=== PATIENT | female | born 1995 | race African-American/Black ===

== ENCOUNTER 2023-06-11 16:07 | Emergency (ER) | payer BC, OTHER ==
--- OUTSIDE RECORDS SUMMARY | 2023-06-11 16:12 | XMS REPORT | Continuity of Care Document ---
:1995 Author Organization [facility] t Address [address] [facility] [address] [place] [address] Care Team Providers Name Role Phone JO MONGE Primary Care Physician Unavailable JOSE MACE Attending Clinician Unavailable JOSE MACE Attending Clinician Unavailable Leila Sorensen RN Attending Clinician Unavailable Saleem DOTY, Jo Marquez Attending Clinician JO MONGE Attending Clinician Unavailable Doctor Unassigned, [place] Attending Clinician Unavailable Pea-Rmchp Nurse Vst, Fp Nrpt Pills Class Attending Clinician Unavailable SINDHU LAWRENCE Attending Clinician Unavailable Sindhu Lawrence CNM Attending Clinician Provider, Ang-Rmchp Temp Attending Clinician Unavailable Ester Godfrey Attending Clinician [phone] ESTER WALSH Attending Clinician Unavailable INO Attending Clinician Unavailable Paula Hwang Attending Clinician PAULA HARRY Attending Clinician Unavailable INO Admitting Clinician Unavailable Payers Payer Name Policy Type Policy Number Effective Date Expiration Date Mary newell [facility] [id number] 2022 00:00:00 [place] [id number] 2022 00:00:00 [place] ([place] Problems Condition Condition Condition Status Onset Resolution Last Treating Co mments Source Name Details Category Date Date Treatment Clinician Date Pap smear Pap smear Disease Active Overview: Univers of cervix of cervix 04-12 Formattin i ty of with with 00:00: g of this [place] ASCUS, ASCUS, 00 note Medical cannot cannot might be Branch exclude exclude different HGSIL HGSIL from the original. ASCUS with HPV - noted on repeat pap (03/2023) . No POPPY noted on colposcop y bx. Needs repeat co-testin g in 12 months (03/2024) . BV BV Disease Active Univers (bacterial (bacterial -05 it y of vaginosis) vaginosis[place] [facility] Breakthrou Breakthrou Disease Active 2021-08 U nivers gh gh 1-11 ity of bleeding bleeding 00:00: [place] on depo on depo 00 Medical provera provera Branch Encounter Encounter Disease Active Uni vers for for 8- ity of initial initial 00:00: [place] prescripti prescripti 00 Me dical on of on of Branch injectable injectable contracept contracept armand armand Screening Screening Disease Active Uni vers examinatio examinatio 03-05 it y of n for STD n for STD 00:[place] (sexually (sexually 00 Medi siri transmitte transmitte Br anch d disease) d disease) Depo Depo Disease Active Univers contracept contracept 03-05 it y of ion ion 00:00: [place] 00 Medical Branch Sickle Sickle Disease Active Univers cell trait cell trait 12-20 it y of 00:00: [place] 00 Medical Branch Well woman Well woman Disease Active Overview : Univers exam exam 12-20 Formattin ity of 00:00: g of this 00 note Medical might be Branch different from the original. ICD10 Diagnosis Term Insulation Applicator Utility Allergies, Adverse Reactions, Alerts Allergy Allergy Status Severity Reaction(s) Onset Inactive Treating Comm ents Source Name Type Date Date Clinician Penicill Propensi Active Anaphylaxis U nivers ins ty to 12-20 ity of adverse 00:00: [place] reaction 00 Medical s Branch PENICILL Drug Active Anaphylaxis 0 Uni vers INS Class 5-07 ity of 00:00: [place] 00 Medical Branch Social History Social Habit Start Date Stop Date Quantity Comments Source Gender identity [facility] Medical Drain Alcohol intake 2023-05-06 2023-05-06 0 /d [facility] 00:00:00 00:00:00 Medical Branch Exposure to 2022-12-19 2022-12-29 Not sure [facility] SARS-CoV-2 (event) 00:00:00 15:28:00 Medica l Branch History of Social 2022-12-29 2022-12-29 [facility] function 00:00:00 00:00:00 Medical Branch Sex Assigned At [birth year] [facility] 00:00:00 00:00:00 Medical Branch Smoking Status Start Date Stop Date Source Never smoked tobacco [facility] Medications Ordered Filled Start Stop Current Ordering Indication Dosage Frequency Signature Comments Components Source Medication Medication Date Date Medication? Clinician (SIG) Name Name medroxyPROG 2022-0 2023- Yes [id number] 150mg Univers ESTERone -16 05-24 ity of (DEPO-PROVE 17:00: 16:59 [place] RA) 00 :00 Medical injection Branch 150 mg medroxyPROG 2022-0 2023- Yes [id number] 150mg 150 mg, Univers ESTERone -31 05- Intramuscu ity of (DEPO-PROVE 17:00: 16:59 lar, [place] RA) 00 :00 [id number], Medical injection 5 doses, Branch 150 mg First dose on Wed03/31/23 at 1200, Last dose on Wed03/01/24 at 1200, Routine medroxyPROG 2022-0 2023- Yes [id number] 150mg Univers ESTERone -16 - ity of (DEPO-PROVE 17:00: 16:59 [place] RA) 00 :00 Medical injection Branch 150 mg medroxyPROG 2023-0 2023- Yes [id number] 150mg 150 mg, Univers ESTERone -16 10-09 Intramuscu ity of (DEPO-PROVE 17:00: 16:59 lar, [place] RA) 00 :00 [id number], Medical injection 5 doses, Branch 150 mg First dose on Wed03/31/23 at 1200, Last dose on Wed03/01/24 at 1200, Routine medroxyPROG 2023-0 2023- Yes [id number] 150mg Univers ESTERone 8-16 10-09 ity of (DEPO-PROVE 17:00: 16:59 [place] RA) 00 :00 Medical injection Branch 150 mg medroxyPROG 2023-0 4- Yes [id number] 150mg Univers ESTERone 8-16 10-09 ity of (DEPO-PROVE 17:00: 16:59 [place] RA) 00 :00 Medical injection Branch 150 mg medroxyPROG 2023-0 4- Yes [id number] 150mg Univers ESTERone 8-16 10-09 ity of (DEPO-PROVE 17:00: 16:59 [place] RA) 00 :00 Medical injection Branch 150 mg medroxyPROG 2023-0 4- Yes [id number] 150mg Univers ESTERone 8-16 10-09 ity of (DEPO-PROVE 17:00: 16:59 [place] RA) 00 :00 Medical injection Branch 150 mg medroxyPROG 2023-0 4- Yes [id number] 150mg Univers ESTERone 8-16 10-09 ity of (DEPO-PROVE 17:00: 16:59 [place] RA) 00 :00 Medical injection Branch 150 mg medroxyPROG 2023-0 4- Yes [id number] 150mg Univers ESTERone 8-16 10-09 ity of (DEPO-PROVE 17:00: 16:59 [place] RA) 00 :00 Medical injection Branch 150 mg medroxyPROG 2023-0 4- Yes [id number] 150mg Univers ESTERone 8-16 10-09 ity of (DEPO-PROVE 17:00: 16:59 [place] RA) 00 :00 Medical injection Branch 150 mg medroxyPROG 2023-0 4- Yes [id number] 150mg Univers ESTERone 8-16 10-09 ity of (DEPO-PROVE 17:00: 16:59 [place] RA) 00 :00 Medical injection Branch 150 mg metroNIDAZO 2023-0 2023- No [id number] 500mg Take 1 Univers LE 500 mg 08-20 tablet by ity of tablet 00:00: 05:59 mouth in [place] 00 :00 the Medical morning Branch and 1 tablet in the evening. Do all this for 7 days. medroxyPROG 2022-0 3- No [id number] 150mg Univers ESTERone 04-03 ity of (DEPO-PROVE 14:00: 13:59 [place] RA) 00 :00 Medical injection Branch 150 mg medroxyPROG 2022-0 3- No [id number] 150mg Univers ESTERone 04-03 ity of (DEPO-PROVE 14:00: 13:59 [place] RA) 00 :00 Medical injection Branch 150 mg medroxyPROG 2022-0 3- No [id number] 150mg 150 mg, Univers ESTERone 04-03 Intramuscu ity of (DEPO-PROVE 14:00: 13:59 [place], [place] RA) 00 :00 [id number], Medical injection 4 doses, Branch 150 mg First dose on Wed04/03/22 at 0900, Last dose on Wed12/11/22 at 0900, Routine medroxyPROG 2022-0 2022- No [id number] 150mg Univers ESTERone 04-03 ity of (DEPO-PROVE 14:00: 13:59 [place] RA) 00 :00 Medical injection Branch 150 mg medroxyPROG 2022-0 2022- No [id number] 150mg 150 mg, Univers ESTERone 04-03 Intramuscu ity of (DEPO-PROVE 14:00: 13:59 [place], [place] RA) 00 :00 [id number], Medical injection 4 doses, Branch 150 mg First dose on Wed04/03/22 at 0900, Last dose on Wed12/11/22 at 0900, Routine medroxyPROG 2022-0 3- No [id number] 150mg Univers ESTERone 04-03 ity of (DEPO-PROVE 14:00: 13:59 [place] RA) 00 :00 Medical injection Branch 150 mg medroxyPROG 2022-0 3- No [id number] 150mg Univers ESTERone 04-03 ity of (DEPO-PROVE 14:00: 13:59 [place] RA) 00 :00 Medical injection Branch 150 mg medroxyPROG 2022-0 3- No [id number] 150mg Univers ESTERone 04-03 ity of (DEPO-PROVE 14:00: 13:59 [place] RA) 00 :00 Medical injection Branch 150 mg medroxyPROG 2-0 3- No [id number] 150mg Univers ESTERone 04-03 ity of (DEPO-PROVE 14:00: 13:59 [place] RA) 00 :00 Medical injection Branch 150 mg medroxyPROG 2-0 3- No [id number] 150mg 150 mg, Univers ESTERone 04-03 Intramuscu ity of (DEPO-PROVE 14:00: 13:59 [facility], [place] RA) 00 :00 [id number], Medical injection 4 doses, Branch 150 mg First dose on Wed04/03/22 at 0900, Last dose on Wed12/11/22 at 0900, Routine medroxyPROG 2-0 2022- No [id number] 150mg 150 mg, Univers ESTERone 04-03-16 Intramuscu ity of (DEPO-PROVE 14:00: 20:56 [facility]) 00 :00 [id number], Medical injection 4 doses, Branch 150 mg First dose on Wed04/03/22 at 0900, Last dose on Wed12/11/22 at 0900, Routine Immunizations Ordered Filled Date Status Comments Source Immunization Name Immunization Name HPV9 2016-06-04 Completed University of 00:00:00 [facility] HPV9 2016-06-04 Completed University of 00:00:00 [facility] HPV9 2016-06-04 Completed University of 00:00:00 [facility] HPV9 2016-06-04 Completed University of 00:00:00 [facility] HPV9 2016-06-04 Completed University of 00:00:00 [facility] HPV9 2016-06-04 Completed University of 00:00:00 [facility] HPV9 2016-06-04 Completed University of 00:00:00 [facility] HPV9 2016-06-04 Completed University of 00:00:00 [facility] HPV9 2016-06-04 Completed University of 00:00:00 [facility] HPV9 2016-06-04 Completed University of 00:00:00 [facility] HPV9 2016-06-04 Completed University of 00:00:00 [facility] HPV9 2016-03-05 Completed University of 00:00:00 [facility] HPV9 2016-03-05 Completed University of 00:00:00 [place] [facility] HPV9 2016-03-05 Completed University of 00:00:00 [place] [facility] HPV9 2016-03-05 Completed University of 00:00:00 [place] [facility] HPV9 2016-03-05 Completed University of 00:00:00 [place] [facility] HPV9 2016-03-05 Completed University of 00:00:00 [place] [facility] HPV9 2016-03-05 Completed University of 00:00:00 [place] [facility] HPV9 2016-03-05 Completed University of 00:00:00 [place] [facility] HPV9 2016-03-05 Completed University of 00:00:00 [place] [facility] HPV9 2016-03-05 Completed University of 00:00:00 [place] [facility] HPV9 2016-03-05 Completed University of 00:00:00 [facility] Branch TDAP 2013-03-22 Completed University of 00:00:00 [facility] Branch TDAP 2013-03-22 Completed University of 00:00:00 [facility] Branch TDAP 2013-03-22 Completed University of 00:00:00 [facility] Branch TDAP 2013-03-22 Completed University of 00:00:00 [facility] Branch TDAP 2013-03-22 Completed University of 00:00:00 [facility] Branch TDAP 2013-03-22 Completed University of 00:00:00 [place] [facility] TDAP 2013-03-22 Completed University of 00:00:00 [place] [facility] TDAP 2013-03-22 Completed University of 00:00:00 [facility] Branch TDAP 2013-03-22 Completed University of 00:00:00 [facility] Branch TDAP 2013-03-22 Completed University of 00:00:00 [place] [facility] TDAP 2013-03-22 Completed University of 00:00:00 [place] [facility] TDAP Unknown Completed [facility] HPV9 Unknown Completed [facility] HPV9 Unknown Completed [facility] TDAP Unknown Completed [facility] HPV9 Unknown Completed [facility] HPV9 Unknown Completed [facility] TDAP Unknown Completed [facility] HPV9 Unknown Completed [facility] HPV9 Unknown Completed [facility] TDAP Unknown Completed [facility] HPV9 Unknown Completed [facility] HPV9 Unknown Completed [facility] TDAP Unknown Completed [facility] HPV9 Unknown Completed [facility] HPV9 Unknown Completed [facility] TDAP Unknown Completed [facility] HPV9 Unknown Completed [facility] HPV9 Unknown Completed [facility] TDAP Unknown Completed [facility] HPV9 Unknown Completed [facility] HPV9 Unknown Completed [facility] TDAP Unknown Completed [facility] HPV9 Unknown Completed [facility] HPV9 Unknown Completed [facility] TDAP Unknown Completed [facility] HPV9 Unknown Completed [facility] HPV9 Unknown Completed [facility] TDAP Unknown Completed [facility] HPV9 Unknown Completed [facility] HPV9 Unknown Completed [facility] Vital Signs Vital Name Observation Time Observation Value Comments Source Systolic blood 2023-05-06 14:47:00 110 mm[Hg] Univer sity of pressure [facility] Diastolic blood 2023-05-06 14:47:00 70 mm[Hg] Unive rsity of pressure [facility] Heart rate 2023-05-06 14:47:00 94 /min Universi ty [facility] Body temperature 2023-05-06 14:47:00 36.72 [facility] Res[facility] rate 2023-05-06 14:47:00 19 /min [facility] Body height 2023-05-06 14:47:00 162.6 cm [facility] ty [facility] Body weight 2023-05-06 14:47:00 57.834 kg [facility] BMI 2023-05-06 14:47:00 21.89 kg/m2 [facility] Systolic blood 2023-03-31 16:10:00 115 mm[Hg] Univer sity of pressure [facility] Diastolic blood 2023-03-31 16:10:00 68 mm[Hg] Unive rsity of pressure [facility] Heart rate 2023-03-31 16:10:00 91 /min [facility] ty [facility] Body temperature 2023-03-31 16:10:00 36.61 [facility] Respiratory rate 2023-03-31 16:10:00 17 /min [facility] Body height 2023-03-31 16:10:00 162.6 cm Universi ty [facility] [place] [facility] Body weight 2023-03-31 16:10:00 58.627 kg Universi ty of [place] [facility] BMI 2023-03-31 16:10:00 22.19 kg/m2 Universi ty of [place] [facility] Systolic blood 2022-12-29 20:28:00 123 mm[Hg] Univer sity of pressure [place] [facility] Diastolic blood 2022-12-29 20:28:00 81 mm[Hg] Unive rsity of pressure [place] [facility] Heart rate 2022-12-29 20:28:00 90 /min Universi ty of [place] [facility] Body temperature 2022-12-29 20:28:00 36.83 Alize Univ ersity of [place] [facility] Respiratory rate 2022-12-29 20:28:00 17 /min Univ ersity of [place] [facility] Body height 2022-12-29 20:28:00 162.6 cm Universi ty of [place] [facility] Body weight 2022-12-29 20:28:00 55.877 kg Universi ty of [place] [facility] BMI 2022-12-29 20:28:00 21.15 kg/m2 Universi ty of [place] [facility] Systolic blood 2022-09-28 22:07:00 114 mm[Hg] Univer sity of pressure [place] [facility] Diastolic blood 2022-09-28 22:07:00 77 mm[Hg] Unive rsity of pressure [place] [facility] Heart rate 2022-09-28 22:07:00 105 /min Universi ty of [place] [facility] Body temperature 2022-09-28 22:07:00 36.22 Alize Univ ersity of [place] [facility] Respiratory rate 2022-09-28 22:07:00 17 /min Univ ersity of [place] [facility] Body height 2022-09-28 22:07:00 162.6 cm Universi ty of [place] [facility] Body weight 2022-09-28 22:07:00 55.43 kg Universi ty of [place] [facility] BMI 2022-09-28 22:07:00 20.98 kg/m2 Universi ty of [place] [facility] Systolic blood 2022-08-18 14:49:00 120 mm[Hg] Univer sity of pressure [place] [facility] Diastolic blood 2022-08-18 14:49:00 73 mm[Hg] Unive rsity of pressure [place] [facility] Heart rate 2022-08-18 14:49:00 81 /min Universi ty of [facility] Body temperature 2022-08-18 14:49:00 36.67 Alize Univ ersity of [place] [facility] Respiratory rate 2022-08-18 14:49:00 18 /min Univ ersity of [facility] Body height 2022-08-18 14:49:00 162.6 cm Universi ty of [place] [facility] Body weight 2022-08-18 14:49:00 57.607 kg Universi ty of [place] [facility] BMI 2022-08-18 14:49:00 21.80 kg/m2 Universi ty of [place] [facility] Systolic blood 2022-06-26 15:14:00 115 mm[Hg] Univer sity of [facility] Diastolic blood 2022-06-26 15:14:00 78 mm[Hg] Unive rsity of [facility] Heart rate 2022-06-26 15:14:00 99 /min Universi ty of [place] [facility] Body temperature 2022-06-26 15:14:00 36.83 Alize [facility] Respiratory rate 2022-06-26 15:14:00 18 /min Univ ersity [facility] Body height 2022-06-26 15:14:00 162.6 cm Universi ty of [facility] Body weight 2022-06-26 15:14:00 55.055 kg Universi ty of [facility] BMI 2022-06-26 15:14:00 20.83 kg/m2 Universi ty of [facility] Procedures Procedure Date / Time Performed Performing Clinician Addy elliott POCT TEST 2023-05-06 14:49:00 Jo Monge [facility] DISCLOSURE AND CONSENT 2023-05-06 05:01:00 Doctor Unassigned, No [facility] MEDICAL & SURGICAL Name Medical [facility] h PROCEDURES - COLPOY ASSIGNMENT OF BENEFITS 2023-03-31 15:46:57 Doctor Unassigned, No [facility] POCT TEST 2022-09-28 22:11:00 [facility] CBC WITH DIFF 2022-06-26 15:49:00 Ester Walsh [facility] GC & CHLAMYDIA 2022-06-26 15:49:00 Ester Walsh [facility] Encounters Start End Encounter Admission Attending Care Care Encounter Source Date/Time Date/Time Type Type Clinicians Facility Department ID 2023-06-03 2023-06-03 Outpatient R [facility] [id number] Univers 09:00:00 09:00:00 ity [facility] 2023-05-20 2023-05-20 Nurse Tiara BUITRAGO [id number] Univers 00:00:00 00:00:00 Triage dLeila 350.1.13.10 ity of [facility] 4.2.7.2.686 [place] [id number] [facility] [address] 2023-05-12 2023-05-12 [facility]phone [facility] [id number] Univers 00:00:00 00:00:00 Jo Marquez PIT OPERATOR 350.1.13.10 ity of [place] [id number] [place] as MATERNAL [id number] Med ical & CHILD [address] [place] [address] 2023-05-06 2023-05-06 [facility] [id number] Univers 09:45:00 10:46:54 JO pagan f [facility] 2023-05-06 2023-05-06 [facility] [id number] Univers 09:45:00 10:46:54 Visit Jo Marquez PIT OPERATOR 350.1.13.10 ity of [address]686 [place] MATERNAL [id number] Med ical & CHILD [address] [place] [address] 2023-05-06 2023-05-06 Orders Doctor BUITRAGO 1.2.840.114 [id number] Univers 00:00:00 00:00:00 Only Unassigned, JESSICA 350.1.13.10 ity of [place] [facility] 4.2.7.2.686 [place] [id number] [facility] [address] 2023-04-08 2023-04-08 Patient [facility] [id number] Univers 00:00:00 00:00:00 Secure Msg Jo Marquez PIT OPERATOR 350.1.13.10 ity of [facility] 4.2.7.2.686 [place] MATERNAL [id number] [facility] & [address] 2023-03-31 2023-03-31 [facility] [id number] Univers 11:00:00 12:07:28 JO naidu [facility] 2023-03-31 2023-03-31 Office [facility] [id number] Univers 11:00:00 12:07:28 Visit Jo Marquez PIT OPERATOR 350.1.13.10 ity of [facility] 4.2.7.2.686 [place] MATERNAL [id number] [address] 2023-03-31 2023-03-31 Orders Doctor IFTIKHAR 1.2.840.114 [id number] Univers 00:00:00 00:00:00 Only Unassigned, JESSICA 350.1.13.10 ity of [place] [facility] 4.2.7.2.686 [place] [id number] [address] 2022-12-29 2022-12-29 [facility] [id number] Univers 15:30:00 15:57:40 JO naidu [facility] 2022-12-29 2022-12-29 Nurse Robyn-Rmchp Nurse Vst, Fp Nrpt Pills Class [facility] 1.2.840.114 [id number] Univers 15:30:00 15:57:40 Visit Jo Monge PIT OPERATOR 350.1.13.10 ity of [facility] 4.2.7.2.686 [place] MATERNAL [id number] [address] 2022-09-28 2022-09-28 Nurse Robyn-Rmchp Nurse Vst, Fp Nrpt Pills Class [facility] 1.2.840.114 [id number] Univers 15:45:00 16:41:09 Visit Jo Monge PIT OPERATOR 350.1.13.10 ity of REGIONAL 4.2.7.2.686 [place] MATERNAL [id number] Med ical & CHILD 125 [facility] 2022-09-28 2022-09-28 Outpatient R SALEEM [facility] [id number] Univers 15:45:00 15:45:00 JO gamez o f [facility] 2022-09-25 2022-09-25 [facility] [id number] Univers 08:00:00 08:00:00 SINDHU gamez [facility] 2022-08-21 2022-08-21 Patient Doctor [facility] 1.2.840.114 [id number] Univers 00:00:00 00:00:00 Secure Msg Unassigned, PIT OPERATOR 350.1.13.10 ity of [place] REGIONAL 4.2.7.2.686 [place] MATERNAL [id number] [facility] & CHILD [address] [place] [address] 2022-08-20 2022-08-20 Case [facility] 1.2.840.114 [id number] Univers 00:00:00 00:00:00 Management Sindhu Marquez PIT OPERATOR 350.1.13.10 ity of [facility] 4.2.7.2.686 [place] MATERNAL [id number] [facility] & CHILD [address] [place] [address] 2022-08-18 2022-08-18 Outpatient Luz [facility] [id number] Univers 08:00:00 09:41:28 SINDHU gamez [facility] 2022-08-18 2022-08-18 Office Provider, [facility] 1 .2.840.114 [id number] Univers 08:00:00 09:41:28 Visit Sindhu Lawrence PIT OPERATOR 350.1.13.1 0 ity of [facility] 4.2.7.2.686 [place] MATERNAL [id number] [facility] & CHILD [address] [place] [address] 2022-06-26 2022-06-26 Office [facility] [id number] Univers 09:00:00 09:49:04 Visit Ester Schwartz PIT OPERATOR 350.1.13.10 ity of REGIONAL 4.2.7.2.686 [place] MATERNAL [id number] [facility] ical & CHILD [address] [place] [address] 2022-06-26 2022-06-26 Outpatient Luz Marina WALSH [facility] [id number] Univers 09:00:00 09:49:04 ESTER ity o f [facility] 2022-04-08 2022-04-08 Outpatient INO LORA [id number] 00:00:00 00:00:00 08 Jaison Apollo mary 2022-04-08 2022-04-08 [facility] [id number] Univers 00:00:00 00:00:00 Paula Raza PIT OPERATOR 350.1.13.10 ity of [facility] 4.2.7.2.686 [place] MATERNAL [id number] [facility] & CHILD [address] [place] [address] 2022-04-07 2022-04-07 Patient Doctor IFTIKHAR 1.2.840.114 [id number] Univers 00:00:00 00:00:00 Secure Msg Unassigned, JESSICA 350.1.13.10 ity of [place] [facility] 4.2.7.2.686 [place] [id number] [address] 2022-04-06 2022-04-06 Refill [facility] 1.2.840.114 [id number] Univers 00:00:00 00:00:00 Paula R PIT OPERATOR 350.1.13.10 ity of [facility] 4.2.7.2.686 [place] MATERNAL [id number] [facility] & CHILD [address] [place] [address] 2022-04-06 2022-04-06 [id number] Univers 00:00:00 00:00:00 Stephana R PIT OPERATOR [id number] ity of [facility] [id number] [place] as MATERNAL [id number] [facility] ical & CHILD [address] [place] [address] 2022-04-03 2022-04-03 Outpatient Luz Marina HARRY [facility] [id number] Univers 08:30:00 08:56:06 ROSTANIYANDA ity o [facility] 2022-04-03 2022-04-03 [facility] [id number] Univers 08:30:00 08:56:06 Visit Rosnda R PIT OPERATOR [id number] ity of [facility] 4.2.7.2.686 [place] as MATERNAL [id number] [facility] & [address] 2022-04-03 2022-04-03 [facility] [id number] Univers 08:30:00 08:30:00 ROSTANIYANDA ity o [facility] 2022-04-03 2022-04-03 [facility] [id number] Univers 08:30:00 08:30:00 ROSTANIYANDA ity o [facility] 2022-03-27 2022-03-27 Telephone [facility] [id number] Univers 00:00:00 00:00:00 Rosnda R PIT OPERATOR [id number] ity of REGIONAL 4.2.7.2.686 [place] as MATERNAL [id number] [facility] & [address] 2022-03-20 2022-03-20 Telephone [facility] [id number] Univers 00:00:00 00:00:00 Roshunda R PIT OPERATOR 350.1.13.10 ity of REGIONAL 4.2.7.2.686 [place] as MATERNAL [id number] [facility] ical & CHILD [address] [place] [address] 2022-03-18 2022-03-18 Outpatient Luz Marina HARRY [facility] [id number] Univers 15:30:00 16:10:54 ROSHUNDA ity o [facility] 2022-03-18 2022-03-18 Outpatient Luz Marina HARRY [facility] [id number] Univers 15:30:00 16:10:54 ROSHUNDA ity o [facility] 2022-03-18 2022-03-18 Outpatient Luz Marina HARRY [facility] [id number] Univers 15:30:00 16:10:54 PAULA gamez o [facility] 2022-03-18 2022-03-18 Outpatient Luz Marina HARRY [facility] [id number] Univers 15:30:00 16:10:54 PAULA gamez o [facility] 2022-03-18 2022-03-18 Outpatient Luz Marina HARRY [facility] [id number] Univers 15:30:00 16:10:54 CLAUSJULIANA pagan [facility] 2022-03-18 2022-03-18 Office [facility] [id number] [facility] 15:30:00 16:10:54 Visit Stephanrodriguez Raza PIT OPERATOR 350.1.13.10 [facility] 4.2.7.2.686 [place] as MATERNAL [id number] Med ical & CHILD [address] [place] [address] 2020-12-09 2020-12-09 Outpatient [facility] 00:00:00 00:00:00 [facility] Results Test Description Test Time Test Comments Results Result Comments Source POCT TEST 2023-05-06 14:49:00 Test Item Value Reference Range Interpretation Comme nts POCT PREG (test code = 1605) Negative On board controls acceptable with C Line (test code = 3574) Yes POCT PREG LOT # (test code = 3575) POCT PREG TEST DATE (test code = 3576[id number] 14:49:00 Test Item Value Reference Range Interpretation Comments POCT PREG (test code = 1605) Negative On board controls acceptable with C Yes Line (test code = 3574) POCT PREG LOT # (test code = 3575) POCT PREG TEST DATE (test code = 3576) [id number] 22:11:00 Test Item Value Reference Range Interpretation Comments POCT PREG (test code = 1605) Negative On board controls acceptable with C Yes Line (test code = 3574) POCT PREG LOT # (test code = 3575) POCT PREG TEST DATE (test code = 3576) [facility] WITH [id number] 09:20:25 Test Item Value Reference Range Interpretation Comments WBC (test code = See_Comment L [Automated 6690-2) message] The sy stem which generated this result transmitted reference range : 4.30 - 11.10 10*3/?L. The reference range was not used to interpret this result as normal/abnormal . RBC (test code = See_Comment [Automated 789-8) message] The sy stem which generated this result transmitted reference range : 3.93 - 5.25 10*6/?L. The reference range was not used to interpret this result as normal/abnormal . HGB (test code = 12.8 g/dL 11.6-15.0 718-7) HCT (test code = 38.9 % 35.7-45.2 4544-3) MCV (test code = 79.7 fL 80.6-95.5 L 787-2) MCH (test code = 26.2 pg 25.9-32.8 785-6) MCHC (test code = 32.9 g/dL 31.6-35.1 786-4) RDW-SD (test code = 40.9 fL 39.0-49.9 10021-1) RDW-CV (test code = 14.1 % 12.0-15.5 788-0) PLT (test code = See_Comment [Automated 777-3) message] The sy stem which generated this result transmitted reference range : 166 - 358 10*3/ ?L. The reference r angus was not used to interpret this result as normal/abnormal . MPV (test code = 9.1 fL 9.5-12.9 L 02641-4) NRBC/100 WBC (test See_Comment [Automat ed code = 2580818909) message] The system which generated this result transmitted reference range : 0.0 - 10.0 /100 WBCs. The refer ence range was not u sed to interpret th is result as normal/abnormal . NRBC x10^3 (test code See_Comment [Auto mated = 8220546520) message] The s ystem which generated this result transmitted reference range : 10*3/?L. The reference range was not used to interpret this result as normal/abnormal . GRAN MAT (NEUT) % 39.6 % (test code = 770-8) IMM GRAN % (test code 0.30 % = 7855435019) LYMPH % (test code = 45.2 % 736-9) MONO % (test code = 9.6 % 5905-5) EOS % (test code = 3.8 % 713-8) BASO % (test code = 1.5 % 706-2) GRAN MAT x10^3(ANC) 1.36 10*3/uL 1.88-7.09 L (test code = 4484991077) IMM GRAN x10^3 (test 0.00-0.06 code = 2206052651) LYMPH x10^3 (test code 1.55 10*3/uL 1.32-3.29 = 731-0) MONO x10^3 (test code 0.33 10*3/uL 0.33-0.92 = 742-7) EOS x10^3 (test code = 0.13 10*3/uL 0.03-0.39 711-2) BASO x10^3 (test code 0.05 10*3/uL 0.01-0.07 = 704-7) Lab Interpretation Abnormal (test code = 58238-1) [facility] WITH [id number] 09:20:25 Test Item Value Reference Range Interpretation Comments WBC (test code = See_Comment L [Automated 4990-2) message] The sy stem which generated this result transmitted reference range : 4.30 - 11.10 10*3/?L. The reference range was not used to interpret this result as normal/abnormal . RBC (test code = See_Comment [Automated 599-8) message] The sy stem which generated this result transmitted reference range : 3.93 - 5.25 10*6/?L. The reference range was not used to interpret this result as normal/abnormal . HGB (test code = 12.8 g/dL 11.6-15.0 718-7) HCT (test code = 38.9 % 35.7-45.2 4544-3) MCV (test code = 79.7 fL 80.6-95.5 L 787-2) MCH (test code = 26.2 pg 25.9-32.8 785-6) MCHC (test code = 32.9 g/dL 31.6-35.1 786-4) RDW-SD (test code = 40.9 fL 39.0-49.9 50526-7) RDW-CV (test code = 14.1 % 12.0-15.5 788-0) PLT (test code = See_Comment [Automated 777-3) message] The sy stem which generated this result transmitted reference range : 166 - 358 10*3/ ?L. The reference r angus was not used to interpret this result as normal/abnormal . MPV (test code = 9.1 fL 9.5-12.9 L 27418-9) NRBC/100 WBC (test See_Comment [Automat ed code = 4033354896) message] The system which generated this result transmitted reference range : 0.0 - 10.0 /100 WBCs. The refer ence range was not u sed to interpret th is result as normal/abnormal . NRBC x10^3 (test code See_Comment [Auto mated = 3611333830) message] The s ystem which generated this result transmitted reference range : 10*3/?L. The reference range was not used to interpret this result as normal/abnormal . GRAN MAT (NEUT) % 39.6 % (test code = 770-8) IMM GRAN % (test code 0.30 % = 2166134520) LYMPH % (test code = 45.2 % 736-9) MONO % (test code = 9.6 % 5905-5) EOS % (test code = 3.8 % 713-8) BASO % (test code = 1.5 % 706-2) GRAN MAT x10^3(ANC) 1.36 10*3/uL 1.88-7.09 L (test code = 0763598332) IMM GRAN x10^3 (test 0.00-0.06 code = 3612997625) LYMPH x10^3 (test code 1.55 10*3/uL 1.32-3.29 = 731-0) MONO x10^3 (test code 0.33 10*3/uL 0.33-0.92 = 742-7) EOS x10^3 (test code = 0.13 10*3/uL 0.03-0.39 711-2) BASO x10^3 (test code 0.05 10*3/uL 0.01-0.07 = 704-7) Lab Interpretation Abnormal (test code = 67670-5) [facility]
[2023-06-11 16:55] LABS: Specific Gravity 1.015 (1.005-1.030)
[2023-06-11 16:56] LABS: Specific Gravity 1.015 (1.005-1.030); Urine Bacteria <20 /HPF (<20); Urine Bilirubin NEGATIVE (Negative); Urine Blood Trace (Negative); Urine Clarity Turbid (Clear); Urine Color Light-Yellow (Yellow); Urine Glucose NEGATIVE (Negative); Urine Mucus Slight /HPF (None Seen); Urine Protein NEGATIVE (Negative); Urine Urobilinogen Normal (Normal)
[2023-06-11 17:02] LABS: Hematocrit 38.7 % (36.0-45.0); Lymphocytes % 26.7 % (15.3-44.8); MPV 6.2 fL (7.6-11.3); Platelets 330 thou/uL (152-406); RBC Red Blood Cell Count 4.66 M/uL (3.86-4.86)
[2023-06-11 17:03] LABS: Absolute Lymphocytes (CBC) 1.7 K/uL (0.7-4.9)
[2023-06-11] MEDS ORDERED: NA CHLORIDE 0.9% 2,000 ML ONE (17:13)
[2023-06-11] MEDS ORDERED: ACETAMINOPHEN 325 MG TABLET ONE (17:13)
[2023-06-11 17:28] LABS: Albumin 3.9 g/dL (3.4-5.0); Bilirubin Total 0.4 mg/dL (0.2-1.0); Potassium 3.7 mEq/L (3.5-5.1); Protein, Total 8.1 g/dL (6.4-8.2)
[2023-06-11] MEDS ORDERED: KETOROLAC 30 MG/ML INJ ONE (18:03)
--- NOTE | 2023-06-11 18:07 | RAD REPORT ---
EXAM DESCRIPTION: CT - Abdomen Pelvis W Contrast - 06/11/2023 5:51 pm CLINICAL HISTORY: Abdominal pain/left lower quadrant COMPARISON: none. TECHNIQUE: Computed axial tomography of the abdomen pelvis was obtained. 100 cc [id number] was admin istered intravenously. Oral contrast was not requested which limits evaluation of bowel and appendix All CT scans are performed using dose optimization technique as appropriate and may include automated exposure control or mA/KV adjustment according to patient size. FINDINGS: The liver, spleen, pancreas, adrenal and kidneys appear unremarkable. There is no evidence of diverticulitis. The ovaries are normal size containing many follicles. No significant free fluid IMPRESSION: Ovaries appear to contain many follicles. This is a nonspecific finding but can be seen with polycystic ovarian syndrome syndrome
--- NOTE | 2023-06-11 19:16 | ER ---
Nurse's Notes [facility] Name: Kurtis López Age: 27 yrs Sex: Female : 1995 Arrival Date: 06/11/2023 Time: 16:07 Bed 5 Private MD: Diagnosis: Lower abdominal pain, unspecified;SARS-associated coronavirus as the cause of diseases classified elsewhere Presentation: 06/11 16:23 Chief complaint: Patient states: LLQ pain X 2 DAYS. Coronavirus screen: At this time, ld1 the client does not indicate any symptoms associated with coronavirus-19. Ebola Screen: No symptoms or risks identified at this time. Onset of symptoms was June 11, 2023. 16:23 Method Of Arrival: Ambulatory ld1 16:23 Acuity: KYA 3 ld1 19:31 Initial Sepsis Screen: Does the patient meet any 2 criteria? HR > 90 bpm. No. Patient's me1 initial sepsis screen is negative. Does the patient have a suspected source of infection? Yes: Acute abdominal pain. Risk Assessment: Do you want to hurt yourself or someone else? Patient reports no desire to harm self or others. Triage Assessment: 16:23 General: Appears in no apparent distress. comfortable, Behavior is calm, cooperative, ld1 appropriate for age. Pain: Complains of pain in left lower quadrant Pain does not radiate. Pain currently is 10 out of 10 on a pain scale. Quality of pain is described as throbbing, Pain began 2-3 days ago. Is continuous. EENT: No signs and/or symptoms were reported regarding the EENT system. Neuro: Level of Consciousness is awake, alert, obeys commands, Oriented to person, place, time, situation. Cardiovascular: Capillary refill < 3 seconds Patient's skin is warm and dry. Respiratory: Airway is patent Respiratory effort is even, unlabored. GI: Abdomen is flat, non-distended, Reports lower abdominal pain. : No signs and/or symptoms were reported regarding the genitourinary system. Derm: No signs and/or symptoms reported regarding the dermatologic system. Musculoskeletal: No signs and/or symptoms reported regarding the musculoskeletal system. 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 - Social history:: Smoking status: Patient denies any tobacco usage or history of. Patient/guardian denies using alcohol. Screenin:30 [facility] ED Fall Risk Assessment (Adult) History of falling in the last 3 months, me1 including since admission No falls in past 3 months (0 pts) Confusion or Disorientation No (0 pts) Intoxicated or Sedated No (0 pts) Impaired Gait No (0 pts) Mobility Assist Device Used No (0 pt) Altered Elimination No (0 pt) Score/Fall Risk Level 0 - 2 = Low Risk. Abuse screen: Denies threats or abuse. Nutritional screening: No deficits noted. Tuberculosis screening: No symptoms or risk factors identified. Assessment: 16:30 General: Appears uncomfortable, well groomed, well developed, well nourished, Behavior me1 is calm, cooperative, appropriate for age, Reports LLQ pain x 2 days. Denies n/v/d/fever. Pain: Complains of pain in left lower quadrant Pain does not radiate. Pain currently is 10 out of 10 on a pain scale. Quality of pain is described as pulling Pain began 2-3 days ago. Is continuous. Neuro: Level of Consciousness is awake, alert, obeys commands, Oriented to person, place, time, situation, Appropriate for age. Cardiovascular: Capillary refill < 3 seconds Patient's skin is warm and dry. Respiratory: Airway is patent Respiratory effort is even, unlabored, Respiratory pattern is regular, symmetrical. GI: Bowel sounds present X 4 quads. Abd is soft Reports lower abdominal pain. Vital Signs: 16:23 Weight 56.7 kg; Height 5 ft. 5 in. ; Pain 10/10; ld1 16:24 BP 124 / 83; Pulse 138; Resp 18; Temp 100.4(O); Pulse Ox 99% on R/A; Weight 56.7 kg; ld1 Height 5 ft. 5 in. ; Pain 10/10; 17:15 BP 112 / 76; Pulse 107; Resp 17; Pulse Ox 100% on R/A; me1 17:40 Temp 98.9(O); me1 18:00 BP 118 / 82; Pulse 104; Resp 16; Pulse Ox 100% on R/A; me1 18:45 BP 113 / 76; Pulse 96; Resp 16; Pulse Ox 96% on R/A; me1 19:21 BP 113 / 76; Pulse 89; Resp 16; Pulse Ox 100% on R/A; me1 16:24 Body Mass Index 20.80 (56.70 kg, 165.1 cm) ld1 16:23 Pain Scale: Adult ld1 16:24 Pain Scale: Adult ld1 ED Course: 16:11 Patient arrived in ED. ts1 16:17 Sujit Moreland PA is PHCP. cp 16:17 Sujit Fitzgerald MD is Attending Physician. cp 16:23 Triage completed. ld1 16:23 Arm band placed on right wrist. ld1 16:28 Ierne Carcamo, RN is Primary Nurse. me1 16:30 Patient has correct armband on for positive identification. Bed in low position. Call me1 light in reach. Side rails up X 1. Provided Education on: POC. Verbalized understanding.. 16:30 No provider procedures requiring assistance completed. me1 16:48 Inserted saline lock: 22 gauge in right antecubital area, using aseptic technique. me1 16:48 CBC with Diff Sent. me1 16:48 CMP Sent. me1 16:48 Lipase Sent. me1 16:48 Test, Urine Sent. me1 16:48 Urinalysis w/ reflexes Sent. me1 16:48 Lactate w/ 2H reflex if indic. Sent. me1 16:48 COVID-19 SARS RT PCR Sent. me1 16:48 Influenza Screen (a \T\ B) Sent. me1 17:52 CT Abd/Pelvis - IV Contrast Only In Process Unspecified. EDMS 19:31 IV discontinued, intact, bleeding controlled, No redness/swelling at site. Pressure me1 dressing applied. Administered Medications: 17:05 Drug: NS 0.9% IV (30 ml/kg) 30 ml/kg IV at bolus once; Sepsis Protocol Route: IV; Rate: me1 bolus; Site: right antecubital; 19:32 Follow up: IV Status: Completed infusion me1 17:06 Drug: Acetaminophen PO 650 mg PO once Route: PO; me1 17:40 Follow up: Temp 98.9 Oral; Response: No adverse reaction; Temperature is decreased me1 17:52 Drug: Ketorolac IVP 15 mg IVP once Route: IVP; Site: left antecubital; me1 18:56 Follow up: Response: No adverse reaction; Pain is decreased me1 Medication: 16:30 VIS not applicable for this client. me1 Outcome: 19:15 Discharge ordered by MD. cp 19:31 Discharged to home ambulatory, me1 19:31 Condition: stable 19:31 Discharge instructions given to patient, Instructed on discharge instructions, follow up and referral plans. medication usage, Demonstrated understanding of instructions, follow-up care, medications, Prescriptions given X 2, 19:32 Patient left the ED. me1 Signatures: Dispatcher [employer] EDMS Sujit Moreland PA PA cp Sims, Lauren, OLE RN ld1 Kelley Aguilar PAS PAS ts1 Irene Carcamo RN RN me1
--- NOTE | 2023-06-11 19:16 | EDPHYS ---
Physician Documentation [facility] Name: Kurtis López Age: 27 yrs Sex: Female : 1995 Arrival Date: 06/11/2023 Time: 16:07 Bed 5 Private MD: ED Physician Sujit Fitzgerald HPI: 06/11 16:20 This 27 yrs old Black Female presents to ER via Ambulatory with complaints of Abdominal cp Pain. 16:20 The patient presents with abdominal pain in the left lower quadrant. cp 16:20 Onset: The symptoms/episode began/occurred 2 day(s) ago. The symptoms do not radiate. cp Associated signs and symptoms: Pertinent negatives: blood in stools, constipation, diarrhea, dysuria, fever, hematuria, vaginal discharge, vomiting. The symptoms are described as constant. Modifying factors: the symptoms are aggravated by pressure. Severity of pain: in the emergency department the pain is unchanged despite home interventions. 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 - Social history:: Smoking status: Patient denies any tobacco usage or history of. Patient/guardian denies using alcohol. ROS: 16:25 Constitutional: Negative for body aches, chills, fever, poor PO intake, cp 16:25 Eyes: Negative for injury, pain, redness, and discharge, cp 16:25 ENT: Negative for drainage from ear(s), ear pain, sore throat, difficulty swallowing, difficulty handling secretions, 16:25 Cardiovascular: Negative for chest pain, 16:25 Respiratory: Negative for cough, shortness of breath, wheezing, 16:25 Abdomen/GI: Positive for abdominal pain, of the left lower quadrant, Negative for vomiting, diarrhea, constipation, anorexia, 16:25 Back: Negative for pain at rest, pain with movement, 16:25 : Negative for urinary symptoms, hematuria, flank pain, vaginal bleeding, vaginal discharge, 16:25 All other systems are negative, Exam: 16:30 Constitutional: The patient appears in no acute distress, alert, awake, non-toxic, well cp developed, well nourished, 16:30 Head/Face: Normocephalic, atraumatic. cp 16:30 Eyes: Periorbital structures: appear normal, Conjunctiva: normal, no exudate, no injection, Sclera: no appreciated abnormality, Lids and lashes: appear normal, bilaterally, 16:30 ENT: External ear(s): are unremarkable, Nose: is normal, Mouth: Lips: moist, Oral mucosa: pink and intact, moist, Posterior pharynx: is normal, airway is patent, no erythema, no exudate, 16:30 Chest/axilla: Inspection: normal, 16:30 Cardiovascular: Rate: tachycardic, Rhythm: regular, 16:30 Respiratory: the patient does not display signs of respiratory distress, Respirations: normal, no use of accessory muscles, no retractions, labored breathing, is not present, Breath sounds: are clear throughout, no decreased breath sounds, no stridor, no wheezing, 16:30 Abdomen/GI: Inspection: abdomen appears normal, Bowel sounds: active, all quadrants, Palpation: soft, in all quadrants, mild abdominal tenderness, in the left lower quadrant, rebound tenderness, is not appreciated, involuntary guarding, is not appreciated, 16:30 Back: pain, is absent, CVA tenderness, is absent, 19:01 ECG was reviewed by the Attending Physician. cp Vital Signs: 16:23 Weight 56.7 kg; Height 5 ft. 5 in. ; Pain 10/10; ld1 16:24 BP 124 / 83; Pulse 138; Resp 18; Temp 100.4(O); Pulse Ox 99% on R/A; Weight 56.7 kg; ld1 Height 5 ft. 5 in. ; Pain 10/10; 17:15 BP 112 / 76; Pulse 107; Resp 17; Pulse Ox 100% on R/A; me1 17:40 Temp 98.9(O); me1 18:00 BP 118 / 82; Pulse 104; Resp 16; Pulse Ox 100% on R/A; me1 18:45 BP 113 / 76; Pulse 96; Resp 16; Pulse Ox 96% on R/A; me1 19:21 BP 113 / 76; Pulse 89; Resp 16; Pulse Ox 100% on R/A; me1 16:24 Body Mass Index 20.80 (56.70 kg, 165.1 cm) ld1 16:23 Pain Scale: Adult ld1 16:24 Pain Scale: Adult ld1 MDM: 16:26 Patient medically screened. 17:00 Differential diagnosis: appendicitis, diverticulitis, Ectopic , Endometriosis, cp Ovarian Torsion, Peritonitis, Pelvic Inflammatory Disease, Pyelonephritis, Tubal Ovarian Abcess, Ureterolithiasis, urinary tract infection. 19:15 Data reviewed: vital signs, nurses notes, lab test result(s), radiologic studies, CT cp scan. 19:15 I considered the following discharge prescriptions or medication management in the emergency department Medications were administered in the Emergency Department. See MAR. Counseling: I had a detailed discussion with the patient and/or guardian regarding the historical points, exam findings, and any diagnostic results supporting the discharge/admit diagnosis, lab results, radiology results, to return to the emergency department if symptoms worsen or persist or if there are any questions or concerns that arise at home. Response to treatment: the patient's symptoms have markedly improved after treatment, and as a result, I will discharge patient. Special discussion: Based on the patient's Hx, exam, and Dx evaluation, there is no indication for emergent surgery or inpatient Tx. It is understood by the patient/guardian that if the Sx's persist or worsen they need to return immediately for re-evaluation. 06/11 16:13 Order name: CBC with Diff; Complete Time: 17:16 [facility] 06/11 17:16 Interpretation: Normal except: MPV 6.2. 06/11 16:13 Order name: CMP; Complete Time: 17:50 [facility] 06/11 17:50 Interpretation: Normal except: GLUC 130; AST 12; GLOB 4.2; A/G 0.9. 06/11 16:13 Order name: Lipase; Complete Time: 17:50 [facility] 06/11 17:51 Interpretation: Reviewed. 06/11 16:13 Order name: Test, Urine; Complete Time: 17:16 [facility] 06/11 17:51 Interpretation: Reviewed. 06/11 16:13 Order name: Urinalysis w/ reflexes; Complete Time: 17:16 06/11 17:16 Interpretation: Normal except: [facility] Turbid; UBLD Trace; UESTR 250; URBC 5-10. 06/11 16:27 Order name: Lactate w/ 2H reflex if indic.; Complete Time: 17:50 cp 06/11 17:51 Interpretation: Reviewed. cp 06/11 16:27 Order name: COVID-19 SARS RT PCR; Complete Time: 17:50 cp 06/11 17:50 Interpretation: Reviewed. cp 06/11 16:27 Order name: Influenza Screen (a \T\ B); Complete Time: 17:16 cp 06/11 17:51 Interpretation: Reviewed. cp 06/11 16:28 Order name: CT Abd/Pelvis - IV Contrast Only; Complete Time: 18:10 cp 06/11 18:10 Interpretation: Report reviewed. cp 06/11 17:54 Order name: EKG; Complete Time: 17:54 cp 06/11 16:13 Order name: IV Saline Lock; Complete Time: 16:48 ld1 06/11 16:13 Order name: Labs collected and sent; Complete Time: 16:48 ld1 06/11 17:54 Order name: EKG - Nurse/Tech; Complete Time: 19:04 EC:01 Rate is 91 beats/min. Rhythm is regular. [place] interval is normal. QRS interval is normal. cp QT interval is normal. T waves are Inverted in leads III, aVR. Interpreted by me. Reviewed by me. Administered Medications: 17:05 Drug: NS 0.9% IV (30 ml/kg) 30 ml/kg IV at bolus once; Sepsis Protocol Route: IV; Rate: me1 bolus; Site: right antecubital; 19:32 Follow up: IV Status: Completed infusion me1 17:06 Drug: Acetaminophen PO 650 mg PO once Route: PO; me1 17:40 Follow up: Temp 98.9 Oral; Response: No adverse reaction; Temperature is decreased me1 17:52 Drug: Ketorolac IVP 15 mg IVP once Route: IVP; Site: left antecubital; me1 18:56 Follow up: Response: No adverse reaction; Pain is decreased me1 Disposition Summary: 06/11/23 19:15 Discharge Ordered Notes: Location: Home cp Problem: new cp Symptoms: have improved cp Condition: Stable cp Diagnosis - Lower abdominal pain, unspecified cp - SARS-associated coronavirus as the cause of diseases classified elsewhere cp Followup: cp - With: Private Physician - When: 2 - 3 days - Reason: Worsening of condition Discharge Instructions: - Discharge Summary Sheet cp - Abdominal Pain, Adult cp - COVID-19 cp - How to Protect Yourself and Others - [facility] (10/10/2021) cp - 10 Things You Can Do to Manage Your COVID-19 Symptoms at Home - [facility] (02/28/2021) cp - COVID-19: Quarantine and Isolation - [facility] (11/12/2021) cp - COVID-19: What to Do If You Are Sick - [facility] (11/04/2021) cp Forms: - Medication Reconciliation Form cp - Thank You Letter cp - Antibiotic Education cp - Prescription Opioid Use cp - Patient Portal Instructions cp - Leadership Thank You Letter cp Prescriptions: - Ibuprofen 600 mg Oral tablet - take 1 tablet ORAL route every 8 hours As needed take with food; 30 tablet; cp Refills: 0, Product Selection Permitted - Zofran 4 mg Oral Tablet - take 1 tablet ORAL route every 12 hours As needed; 20 tablet; Refills: 0, cp Product Selection Permitted Signatures: Dispatcher [employer] EDSujit Lane PA PA cp Sylvia Alcala, RN RN ld1 Irene Carcamo RN RN me1
[2023-06-11 20:13] VITALS: TEMP 98.9
[2023-06-11 20:15] VITALS: BP 113/76
[2023-06-11 20:17] VITALS: O2SAT 100
--- NOTE | 2023-06-15 08:01 | EKG ---
Test Date: 2023-06-11 Test Time: 18:59:14 Campus Administrator: CHLOE MEASUREMENT RESULTS: Intervals: Rate: 91 UT: 124 QRSD: 70 QT: 346 QTc: 425 [place]: P: 54 UT: 124 QRS: 61 T: 13 INTERPRETIVE STATEMENTS: Normal sinus rhythm Nonspecific T wave abnormality Abnormal ECG No previous ECG available for comparison Electronically Signed On 06-15-23 07:53:58 CDT by Geovanni Bazan
== END 2023-06-11 19:32 | disposition home or self-care (01) ==
LOC: ER 16:07
DX: U07.1 COVID-19 (principal); R10.30 Lower abdominal pain, unspecified; Z88.0 Allergy status to penicillin
CPT/HCPCS: 96365; 93005; 85025; 81001; 36415; 81025; 83605; 83690; 80053; 87635; 87804 ×2; 74177; 96375; 99284; 96366; Q9967; J7030

== ENCOUNTER 2025-03-26 10:01 | Emergency (ER) | payer OTHER, SELFPAY ==
--- OUTSIDE RECORDS SUMMARY | 2025-03-26 10:08 | XMS REPORT | Continuity of Care Document ---
Author Name Unknown Address [address] [place] [address] [facility] Address [address] [place] [address] Care Team Providers Care [facility] Worker Name Role Phone Russel DOTY, Jo Marquez Primary Care Physician [phone] IFTIKHAR SALOMON Attending Clinician Unavailable MARK WALSH Attending Clinician Unavail able Nico Mark CUEVAS Attending Clinician + DARIO HERNANDEZ Attending Clinician Unavailable Nanci Gonzalez Attending Clinician UnavailDario Ty MD Attending Clinician [phone] KRYSTINA JORDAN Attending Clinician Unavailable KRYSTINA JORDAN Attending Clinician Unavailable KRYSTINA JORDAN Attending Clinician Unavailable Ultrasound, Geovanny-Mfbg Attending Clinician Unavaila Krystina Ibarra MD Attending Clinician [phone] Lab, PaulineRmmariza Attending Clinician Unavailable Doctor Unassigned, [place] Attending Clinician U PHYLICIA Fermin Attending Clinician Unavailable PHYLICIA TUCKER Attending Clinician Unavailable 1, [facility] Attending Clinician UnavailPhylicia Jacobo MD Attending Clinician [phone] Russel MSN, Jo Marquez Attending Clinician +09-12 JOSE MACE Attending Clinician UnavailJOSE Flores Attending Clinician UnavailWESLEY Love Attending Clinician Unavailable WESLEY MONREAL Attending Clinician Unavailable Russel MSN, Jo Marquez Attending Clinician +09-12 JO MONGE Attending Clinician Unavailab MACARENA Moore Attending Clinician Unavailsven elliott Pea-[facility] Nurse Vst, Fp Nrpt Pills Class Attendi ng Clinician Unavailable Edu RN, Leila Arboleda Attending Clinician Dionne vailable Doctor Unassigned, [place] Attending Clinician U SINDHU [place] Attending Clinician Unavailrodriguez Colbert CNMSindhu Attending Clinician [phone] Provider, Ang-[facility] Temp Attending Clinician Dionne vailable AkinsiMark Pinto C Attending Clinician + INO Attending Clinician Unavailable Paula Hwang Attending Clinician + [phone] PAULA HARRY Attending Clinician Unavailab minerva MCKINNON Admitting Clinician Unavailable Payers Payer Name Policy Type Policy Number Effective Date Expirati on Date Source [place] [facility] [id number] 2024 00[place] [id number] 2022 00:00:00 Problems Condition Name Condition Details Condition Category Status Onset Date Resolution Date Last Treatment Date Treating Clinician Comments Source Anemia of mother in , antepartum Anemia of mother in , antepartum Disease Active 01-02 00:00: 00 [facility] Supervisio n of high-risk Supervisio n of high-risk Disease Active 2023-08 00:00: 00 [facility] Over weight Over weight Disease Active 2023-08 00:00: 00 [facility] Pap smear of cervix with ASCUS, cannot exclude HGSIL Pap smear of cervix with ASCUS, cannot exclude HGSIL Disease Active 04-12 00:00: 00 Overview: Nemesio arboleda of this note might be different from the original. ASCUS with HPV - noted on repeat pap (03/2023) . No POPPY noted on colposcop y bx. Needs repeat co-testin g in 12 months (03/2024) . [facility] Sickle cell trait Sickle cell trait Disease Active 12-20 00:00: 00 [facility] BV (bacterial vaginosis) BV (bacterial vaginosis) Disease Resolve d 1-05 00:00: 00 2024-08-14 00:00:00 2024-08-14 14:24:12 [facility] Breakthrou gh bleeding on depo provera Breakthrou gh bleeding on depo provera Disease Resolve d 2021-08 1-11 00:00: 00 2024-08-14 00:00:00 2024-08-14 14:24:13 [facility] Screening examinatio n for STD (sexually transmitte d disease) Screening examinatio n for STD (sexually transmitte d disease) Disease Resolve d 7- 00:00: 00 2024-08-14 00:00:00 2024-08-14 14:24:10 [facility] Depo contracept ion Depo contracept ion Disease Resolve d 7- 00:00: 00 2024-08-14 00:00:00 2024-08-14 14:24:08 [facility] Encounter for initial prescripti on of injectable contracept armand Encounter for initial prescripti on of injectable contracept armand Disease Resolve d 8 00:00: 00 2022-08-18 00:00:00 2022-08-18 13:32:27 [facility] Well woman exam Well woman exam Disease Resolve d 5 00:00: 00 2022-08-18 00:00:00 2022-08-18 13:32:30 Overview: Formattin g of this note might be different from the original. 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 [facility] Rubella immune Rubella immune Disease Resolve d 12-21 00:00: 00 2016-03-05 00:00:00 2016-03-05 11:28:43 [facility] Allergies, Adverse Reactions, Alerts Allergy Name Allergy Type Status Severity Reaction(s) Onset Date Inactive Date Treating Clinician Comments Source Penicill ins Propensi ty to adverse reaction s Active Anaphylaxis 12-20 00:00: 00 [facility] PENICILL INS Drug Class Active Anaphylaxis 12-20 00:00: 00 [facility] Penicill ins Propensi ty to adverse reaction s Active Anaphylaxis 12-20 00:00: 00 [facility] Penicill ins Propensi ty to adverse reaction s Active Anaphylaxis 12-20 00:00: 00 [facility] Social History Social Habit Start Date Stop Date Quantity Comments Source ASSERTION 2024-07-13 00:00:00 [facility] Gender identity [facility] Alcoholic beverage intake 2025-03-13 00:00:00 2025-03-13 00:00:00 0 /d [facility] History of Social function 2025-01-24 00:00:00 2025-01-24 00:00:00 [facility] Alcohol intake 2023-09-07 00:00:00 2023-09-07 00:00:00 0 /d [facility] Exposure to SARS-CoV-2 (event) 2022-12-19 00:00:00 2022-12-29 15:28:00 Not sure [facility] Sex assigned at 1995 00:00:00 1995 00:00:00 [facility] Smoking Status Start Date Stop Date Source Never smoked tobacco [facility] Medications Ordered Medication Name Filled Medication Name Start Date Stop Date Current Medication? Ordering Clinician Indication Dosage Frequency Signature (SIG) Comments Components Source terconazole 80 mg vaginal suppository 01-30 00:00: 00 02-03 04:59 :00 Yes [id number] 80mg Insert 1 Suppositor y into vagina at bedtime for 3 days. [facility] Iron Fum & P-FA-Vit B & C No.9 (INTEGRA PLUS) 125 mg iron- 1 mg Cap - 00:00: 00 Yes [id number] 1{tbl} Take 1 tablet by mouth in the morning. [facility] fluconazole (DIFLUCAN) 150 mg tablet 12-06 00:00: 00 12-07 04:59 :00 No [id number] 150mg Take 1 tablet by mouth once now for 1 dose. [facility] medroxyPROG ESTERone (DEPO-PROVE RA) injection 150 mg 01-26 05:00: 00 01-26 16:59 :00 No [id number] 150mg [facility] valACYclovi r (VALTREX) 500 mg tablet 01-26 00:00: 00 02-01 04:59 :00 No [id number] 500mg Take 1 tablet by mouth in the morning and 1 tablet in the evening. Do all this for 5 days. [facility] medroxyPROG ESTERone (DEPO-PROVE RA) injection 150 mg 03-31 17:00: 00 01-25 20:18 :34 No [id number] 150mg [facility] metroNIDAZO LE 500 mg tablet 1- 00:00: 00 08-28 05:59 :00 No [id number] 500mg Take 1 tablet by mouth in the morning and 1 tablet in the evening. Do all this for 7 days. [facility] medroxyPROG ESTERone (DEPO-PROVE RA) injection 150 mg 04-03 14:00: 00 12-29 20:56 :00 No [id number] 150mg 150 mg, Intramuscu lar, [id number], 4 doses, First dose on Wed04/03/22 at 0900, Last dose on Wed12/11/22 at 0900, Routine [facility] Immunizations Ordered Immunization Name Filled Immunization Name Date Status Comments Source TDAP 2025-01-24 00:00:00 Completed [facility] Flu Injectable MDCK Pres-Free (FLUCELVAX) 2024-08-14 00:00:00 Completed [facility] HPV9 2016-06-04 00:00:00 Completed [facility] HPV9 2016-06-04 00:00:00 Completed [facility] HPV9 2016-06-04 00:00:00 Completed [facility] HPV9 2016-06-04 00:00:00 Completed [facility] HPV9 2016-06-04 00:00:00 Completed [facility] HPV9 2016-06-04 00:00:00 Completed [facility] HPV9 2016-06-04 00:00:00 Completed [facility] HPV9 2016-06-04 00:00:00 Completed [facility] HPV9 2016-06-04 00:00:00 Completed [facility] HPV9 2016-03-05 00:00:00 Completed [facility] HPV9 2016-03-05 00:00:00 Completed [facility] HPV9 2016-03-05 00:00:00 Completed [facility] HPV9 2016-03-05 00:00:00 Completed [facility] HPV9 2016-03-05 00:00:00 Completed [facility] HPV9 2016-03-05 00:00:00 Completed [facility] HPV9 2016-03-05 00:00:00 Completed [facility] HPV9 2016-03-05 00:00:00 Completed [facility] HPV9 2016-03-05 00:00:00 Completed [facility] TDAP 2013-03-22 00:00:00 Completed [facility] TDAP 2013-03-22 00:00:00 Completed [facility] TDAP 2013-03-22 00:00:00 Completed [facility] TDAP 2013-03-22 00:00:00 Completed [facility] TDAP 2013-03-22 00:00:00 Completed [facility] TDAP 2013-03-22 00:00:00 Completed [facility] TDAP 2013-03-22 00:00:00 Completed [facility] TDAP 2013-03-22 00:00:00 Completed [facility] TDAP 2013-03-22 00:00:00 Completed TDAP 2010-05-06 00:00:00 Completed Meningococcal Polysaccharide (groups A, C, Y and W-135) conjugate vaccine (MCV4P) 2010-05-06 00:00:00 Completed Varicella (varivax)(chicken pox) 2010-05-06 00:00:00 Completed DTaP, Unspecified Formulation 2002-03-23 00:00:00 Completed Hep B, Adol or Pedi Dosage 2002-03-23 00:00:00 Completed MMR 2002-03-23 00:00:00 Completed IPV 2002-03-23 00:00:00 Completed DTaP, Unspecified Formulation 2001-07-28 00:00:00 Completed MMR 2001-07-28 00:00:00 Completed IPV 2001-07-28 00:00:00 Completed DTaP, Unspecified Formulation 1999-05-08 00:00:00 Completed HIB 4 Dose Schedule 1999-05-08 00:00:00 Completed MMR 1998-07-30 00:00:00 Completed Varicella (varivax)(chicken pox) 1998-07-30 00:00:00 Completed DPT/HIB 1998-01-10 00:00:00 Completed Hep B, Adol or Pedi Dosage 1998-01-10 00:00:00 Completed DPT/HIB 1997 00:00:00 Completed Poliovirus, Live, Oral, Trivalent 1997 00:00:00 Completed DTaP, Unspecified Formulation 1997 00:00:00 Completed Haemophilus influenzae type b vaccine, conjugate unspecified formulation 1997 00:00:00 Completed Poliovirus, Live, Oral, Trivalent 1997 00:00:00 Completed Hep B, Adol or Pedi Dosage 1997 00:00:00 Completed TDAP Unknown Completed [facility] HPV9 Unknown Completed [facility] TDAP Unknown Completed [facility] HPV9 Unknown Completed [facility] TDAP Unknown Completed [facility] HPV9 Unknown Completed [facility] TDAP Unknown Completed [facility] HPV9 Unknown Completed [facility] TDAP Unknown Completed [facility] HPV9 Unknown Completed [facility] TDAP Unknown Completed [facility] HPV9 Unknown Completed [facility] TDAP Unknown Completed [facility] HPV9 Unknown Completed [facility] TDAP Unknown Completed [facility] HPV9 Unknown Completed [facility] TDAP Unknown Completed [facility] HPV9 Unknown Completed [facility] TDAP Unknown Completed [facility] HPV9 Unknown Completed [facility] TDAP Unknown Completed [facility] HPV9 Unknown Completed [facility] Vital Signs Vital Name Observation Time Observation Value Comments S ource Systolic blood pressure 2025-03-21 18:24:00 126 mm[Hg] [facility] Diastolic blood pressure 2025-03-21 18:24:00 75 mm[Hg] [facility] Heart rate 2025-03-21 18:24:00 104 /min Unive [facility] Body temperature 2025-03-21 18:24:00 35.94 Alize [facility] Respiratory rate 2025-03-21 18:24:00 18 /min [facility] Body height 2025-03-21 18:24:00 165.1 cm Univ [facility] Body weight 2025-03-21 18:24:00 78.971 kg Univ [facility] BMI 2025-03-21 18:24:00 28.97 kg/m2 [facility] Systolic blood pressure 2025-03-13 17:46:00 130 mm[Hg] [facility] Diastolic blood pressure 2025-03-13 17:46:00 75 mm[Hg] [facility] Heart rate 2025-03-13 17:46:00 122 /min Unive [facility] Body temperature 2025-03-13 17:46:00 36.11 Alize [facility] Respiratory rate 2025-03-13 17:46:00 18 /min [facility] Body height 2025-03-13 17:46:00 165.1 cm [facility] Body weight 2025-03-13 17:46:00 77.65 kg Univ [facility] BMI 2025-03-13 17:46:00 28.49 kg/m2 [facility] Systolic blood pressure 2025-03-05 18:21:00 113 mm[Hg] [facility] Diastolic blood pressure 2025-03-05 18:21:00 69 mm[Hg] [facility] Heart rate 2025-03-05 18:21:00 108 /min [facility] Body temperature 2025-03-05 18:21:00 36.28 Alize [facility] Respiratory rate 2025-03-05 18:21:00 18 /min [facility] Body height 2025-03-05 18:21:00 165.1 cm [facility] Body weight 2025-03-05 18:21:00 76.794 kg Univ [facility] BMI 2025-03-05 18:21:00 28.17 kg/m2 [facility] Systolic blood pressure 2025-02-19 17:38:00 117 mm[Hg] [facility] Diastolic blood pressure 2025-02-19 17:38:00 70 mm[Hg] [facility] Heart rate 2025-02-19 17:38:00 110 /min Unive [facility] Body temperature 2025-02-19 17:38:00 36.17 Alize [facility] Respiratory rate 2025-02-19 17:38:00 17 /min [facility] Body height 2025-02-19 17:38:00 165.1 cm Univ [facility] Body weight 2025-02-19 17:38:00 76.346 kg Univ [facility] BMI 2025-02-19 17:38:00 28.01 kg/m2 [facility] Systolic blood pressure 2025-02-05 16:20:00 117 mm[Hg] [facility] Diastolic blood pressure 2025-02-05 16:20:00 77 mm[Hg] [facility] Heart rate 2025-02-05 16:20:00 113 /min Un[facility] Body temperature 2025-02-05 16:20:00 36.28 Alize [facility] Respiratory rate 2025-02-05 16:20:00 17 /min [facility] Body height 2025-02-05 16:20:00 165.1 cm Univ [facility] Body weight 2025-02-05 16:20:00 74.844 kg Univ [facility] BMI 2025-02-05 16:20:00 27.46 kg/m2 [facility] Systolic blood pressure 2025-01-24 14:17:00 116 mm[Hg] [facility] Diastolic blood pressure 2025-01-24 14:17:00 73 mm[Hg] [facility] Heart rate 2025-01-24 14:17:00 123 /min [facility] Body temperature 2025-01-24 14:17:00 35.89 Alize [facility] Respiratory rate 2025-01-24 14:17:00 17 /min [facility] Body height 2025-01-24 14:17:00 165.1 cm [facility] Body weight 2025-01-24 14:17:00 74.588 kg Univ [facility] BMI 2025-01-24 14:17:00 27.36 kg/m2 [facility] Systolic blood pressure 2025-01-01 18:22:00 112 mm[Hg] [facility] Diastolic blood pressure 2025-01-01 18:22:00 69 mm[Hg] [facility] Heart rate 2025-01-01 18:22:00 104 /min [facility] Body temperature 2025-01-01 18:22:00 36.28 Alize [facility] Respiratory rate 2025-01-01 18:22:00 17 /min [facility] Body height 2025-01-01 18:22:00 165.1 cm Univ [facility] Body weight 2025-01-01 18:22:00 72.802 kg Univ [facility] BMI 2025-01-01 18:22:00 26.71 kg/m2 [facility] Systolic blood pressure 2024-12-04 18:28:00 118 mm[Hg] [facility] Diastolic blood pressure 2024-12-04 18:28:00 66 mm[Hg] [facility] Heart rate 2024-12-04 18:28:00 107 /min Un[facility] Body temperature 2024-12-04 18:28:00 35.83 Alize [facility] Respiratory rate 2024-12-04 18:28:00 18 /min [facility] Body height 2024-12-04 18:28:00 165.1 cm [facility] Body weight 2024-12-04 18:28:00 71.396 kg [facility] BMI 2024-12-04 18:28:00 26.19 kg/m2 [facility] Systolic blood pressure 2024-11-06 20:40:00 100 mm[Hg] [facility] Diastolic blood pressure 2024-11-06 20:40:00 60 mm[Hg] [facility] Heart rate 2024-11-06 20:40:00 74 /min Un[facility] Body temperature 2024-11-06 20:40:00 36.72 Alize [facility] Respiratory rate 2024-11-06 20:40:00 16 /min [facility] Body height 2024-11-06 20:40:00 165.1 cm [facility] Body weight 2024-11-06 20:40:00 67.767 kg [facility] BMI 2024-11-06 20:40:00 24.86 kg/m2 [facility] Oxygen saturation in Arterial blood by Pulse oximetry 2024-11-06 20:40:00 100 /min [facility] Systolic blood pressure 2024-10-09 20:25:00 119 mm[Hg] [facility] Diastolic blood pressure 2024-10-09 20:25:00 67 mm[Hg] [facility] Heart rate 2024-10-09 20:25:00 111 /min [facility] Body temperature 2024-10-09 20:25:00 36.72 Alize [facility] Respiratory rate 2024-10-09 20:25:00 18 /min [facility] Body weight 2024-10-09 20:25:00 68.675 kg Univ [facility] BMI 2024-10-09 20:25:00 25.19 kg/m2 [facility] Systolic blood pressure 2024-09-11 19:20:00 115 mm[Hg] [facility] Diastolic blood pressure 2024-09-11 19:20:00 71 mm[Hg] [facility] Heart rate 2024-09-11 19:20:00 108 /min Un[facility] Body temperature 2024-09-11 19:20:00 36.28 Alize [facility] Respiratory rate 2024-09-11 19:20:00 16 /min [facility] Body height 2024-09-11 19:20:00 165.1 cm Univ [facility] Body weight 2024-09-11 19:20:00 69.673 kg [facility] BMI 2024-09-11 19:20:00 25.56 kg/m2 [facility] Systolic blood pressure 2024-08-14 19:49:00 106 mm[Hg] [facility] Diastolic blood pressure 2024-08-14 19:49:00 70 mm[Hg] [facility] Heart rate 2024-08-14 19:49:00 106 /min Un[facility] Body temperature 2024-08-14 19:49:00 37.11 Alize [facility] Respiratory rate 2024-08-14 19:49:00 18 /min [facility] Body height 2024-08-14 19:49:00 165.1 cm [facility] Body weight 2024-08-14 19:49:00 69.037 kg [facility] BMI 2024-08-14 19:49:00 25.33 kg/m2 [facility] Systolic blood pressure 2024-01-26 19:11:00 117 mm[Hg] [facility] Diastolic blood pressure 2024-01-26 19:11:00 79 mm[Hg] [facility] Heart rate 2024-01-26 19:11:00 100 /min Un[facility] Body temperature 2024-01-26 19:11:00 36.56 Alize [facility] Body height 2024-01-26 19:11:00 [facility] 2024-01-26 19:11:00 65.499 kg [facility] BMI 2024-01-26 19:11:00 24.03 kg/m2 [facility] Oxygen saturation in Arterial blood by Pulse oximetry 2024-01-26 19:11:00 100 /min [facility] Systolic blood pressure 2023-07-01 19:55:00 114 mm[Hg] [facility] Diastolic blood pressure 2023-07-01 19:55:00 78 mm[Hg] [facility] Heart rate 2023-07-01 19:55:00 90 /min [facility] Body temperature 2023-07-01 19:55:00 35.89 Alize [facility] Respiratory rate 2023-07-01 19:55:00 19 /min [facility] Body height 2023-07-01 19:55:00 162.6 cm [facility] Body weight 2023-07-01 19:55:00 58.469 kg [facility] BMI 2023-07-01 19:55:00 22.13 kg/m2 [facility] Systolic blood pressure 2023-05-06 14:47:00 110 mm[Hg] [facility] Diastolic blood pressure 2023-05-06 14:47:00 70 mm[Hg] [facility] Heart rate 2023-05-06 14:47:00 94 /min [facility] Body temperature 2023-05-06 14:47:00 36.72 Alize [facility] Respiratory rate 2023-05-06 14:47:00 19 /min [facility] Body height 2023-05-06 14:47:00 162.6 cm [facility] Body weight 2023-05-06 14:47:00 57.834 kg Univ [facility] BMI 2023-05-06 14:47:00 21.89 kg/m2 [facility] Systolic blood pressure 2023-03-31 16:10:00 115 mm[Hg] [facility] Diastolic blood pressure 2023-03-31 16:10:00 68 mm[Hg] [facility] Heart rate 2023-03-31 16:10:00 91 /min [facility] Body temperature 2023-03-31 16:10:00 36.61 Alize [facility] Respiratory rate 2023-03-31 16:10:00 17 /min [facility] Body height 2023-03-31 16:10:00 162.6 cm [facility] Body weight 2023-03-31 16:10:00 58.627 kg [facility] BMI 2023-03-31 16:10:00 22.19 kg/m2 [facility] Systolic blood pressure 2022-12-29 20:28:00 123 mm[Hg] [facility] Diastolic blood pressure 2022-12-29 20:28:00 81 mm[Hg] [facility] Heart rate 2022-12-29 20:28:00 90 /min [facility] Body temperature 2022-12-29 20:28:00 36.83 Alize [facility] Respiratory rate 2022-12-29 20:28:00 17 /min [facility] Body height 2022-12-29 20:28:00 162.6 cm [facility] Body weight 2022-12-29 20:28:00 55.877 kg [facility] BMI 2022-12-29 20:28:00 21.15 kg/m2 [facility] Systolic blood pressure 2022-09-28 22:07:00 114 mm[Hg] [facility] Diastolic blood pressure 2022-09-28 22:07:00 77 mm[Hg] [facility] Heart rate 2022-09-28 22:07:00 105 /min Un[facility] Body temperature 2022-09-28 22:07:00 36.22 Alize [facility] Respiratory rate 2022-09-28 22:07:00 17 /min [facility] Body height 2022-09-28 22:07:00 162.6 [facility] weight 2022-09-28 22:07:00 55.43 kg [facility] BMI 2022-09-28 22:07:00 20.98 kg/m2 [facility] Systolic blood pressure 2022-08-18 14:49:00 120 mm[Hg] [facility] Diastolic blood pressure 2022-08-18 14:49:00 73 mm[Hg] [facility] Heart rate 2022-08-18 14:49:00 81 /min [facility] Body temperature 2022-08-18 14:49:00 36.67 Alize [facility] Respiratory rate 2022-08-18 14:49:00 18 /min [facility] [facility] Body height 2022-08-18 14:49:00 162.6 cm [facility] Body weight 2022-08-18 14:49:00 57.607 kg [facility] BMI 2022-08-18 14:49:00 21.80 kg/m2 [facility] Systolic blood pressure 2022-06-26 15:14:00 115 mm[Hg] [facility] Diastolic blood pressure 2022-06-26 15:14:00 78 mm[Hg] [facility] Heart rate 2022-06-26 15:14:00 99 /min Un[facility] Body temperature 2022-06-26 15:14:00 36.83 Alize [facility] Respiratory rate 2022-06-26 15:14:00 18 /min [facility] Body height 2022-06-26 15:14:00 162.6 cm [facility] Body weight 2022-06-26 15:14:00 55.055 kg [facility] BMI 2022-06-26 15:14:00 20.83 kg/m2 [facility] Procedures Procedure Date / Time Performed Performing Clinicia n Source HIV 1/2 AG-AB WITH REFLEX 2025-02-05 16:44:00 Mark Walsh [facility] SYPHILIS IGG/IGM 2025-02-05 16:44:00 Yulisa Walsh [facility] POCT URINALYSIS 2025-02-05 00:00:00 Mark Walsh [facility] TDAP VACCINE, >11 YRS, IM 2025-01-24 14:37:58 Mark Walsh [facility] POCT URINALYSIS 2025-01-01 00:00:00 Mark Walsh [facility] SECOND AND THIRD TRIMESTER ULTRASOUND 2024-11-17 18:42:00 Mark Walsh [facility] ALPHA FETOPROTEIN-MATERNAL SER 2024-11-10 18:05:00 Mark Walsh [facility] POCT URINALYSIS GLUCOSE & PROTEIN 2024-11-06 20:49:00 Mark Walsh [facility] NIPT - NON-INVASIVE TEST RESULTS 2024-10-17 13:09:27 Doctor Unassigned, [place] [facility] POCT URINALYSIS 2024-10-09 00:00:00 Mark Walsh [facility] FIRST TRIMESTER ULTRASOUND 2024-09-25 22:07:00 Mark Walsh [facility] POCT URINALYSIS 2024-09-11 19:21:00 Mark Walsh [facility] FLU VACC ([id number]), 6 MO-64 YRS, .5ML, IM, TIV (FLUCELVAX) 2024-08-14 20:13:22 Mark Walsh [facility] POCT URINALYSIS W/O SPECIFIC GRAVITY 2024-08-14 19:49:00 Mark Walsh [facility] POCT TEST 2024-08-14 19:48:00 Wero Walsh [facility] POCT TEST 2024-01-26 19:13:00 Sabine Monge [facility] POCT TEST 2023-05-06 14:49:00 Sabine Monge [facility] DISCLOSURE AND CONSENT MEDICAL & SURGICAL PROCEDURES - COLPOY 2023-05-06 05:01:00 Doctor Unassigned, [place] [facility] ASSIGNMENT OF BENEFITS 2023-03-31 15:46:57 Docto r Unassigned, [place] [facility] POCT TEST 2022-09-28 22:11:00 Sabnie Monge [facility] CBC WITH DIFF 2022-06-26 15:49:00 Mark Walsh [facility] GC & CHLAMYDIA AMPLIFIED ASSAY 2022-06-26 15:49:00 Mark Walsh [facility] Encounters Start Date/Time End Date/Time Encounter Type Admission Type Attending Clinicians Care Facility Care Department Encounter ID Source 2025-03-21 13:00:00 2025-03-21 13:55:34 Routine Visit R Mark Walsh [facility] REFERRAL MANAGEMENT [facility]IA[facility] & CHILD [facility] 1.2.840.114 350.1.13.10 4.2.7.2.686 [id number] 107 [id number] [facility] 2025-03-14 00:00:00 2025-03-14 16:55:49 Telephone Mark Walsh [facility] REFERRAL MANAGEMENT LIAISON [facility] & CHILD [facility] 1.2.840.114 350.1.13.10 4.2.7.2.686 [id number] 107 [id number] [facility] 2025-03-13 12:45:00 2025-03-13 13:22:43 Routine Visit R MARK WALSH REFERRAL MANAGEMENT LIAISON [facility] & CHILD [facility] 1.2.840.114 350.1.13.10 4.2.7.2.686 [id number] 107 [id number] [facility] 2025-03-05 12:45:00 2025-03-05 13:50:47 Routine Visit R Mark Walsh [facility] REFERRAL MANAGEMENT LIAISON [facility] & CHILD [facility] 1.2.840.114 350.1.13.10 4.2.7.2.686 [id number] 107 [id number] [facility] 2025-02-19 12:45:00 2025-02-19 13:08:46 Routine Visit R MARK WALSH REFERRAL MANAGEMENT LIAISON [facility] & CHILD [facility] 1.2.840.114 350.1.13.10 4.2.7.2.686 [id number] 107 [id number] [facility] 2025-02-12 00:00:00 2025-02-13 08:04:14 Patient Secure Msg Mark Walsh [facility] REFERRAL MANAGEMENT LIAISON [facility] & CHILD [facility] 1.2.840.114 350.1.13.10 4.2.7.2.686 [id number] 107 [id number] [facility] 2025-02-05 11:15:00 2025-02-05 11:46:26 Routine Visit R Mark Walsh [facility] REFERRAL MANAGEMENT LIAISON [facility] & CHILD [facility] 1.2.840.114 350.1.13.10 4.2.7.2.686 [id number] 107 [id number] [facility] 2025-01-30 00:00:00 2025-01-30 15:00:41 Telephone Mark Walsh [facility] REFERRAL MANAGEMENT LIAISON [facility] & CHILD [facility] 1.2.840.114 350.1.13.10 4.2.7.2.686 [id number] 107 [id number] [facility] 2025-01-24 09:00:00 2025-01-24 09:44:35 Routine Visit R Mark Walsh REFERRAL MANAGEMENT LIAISON [facility] & CHILD [facility] 1.2.840.114 350.1.13.10 4.2.7.2.686 [id number] 107 [id number] [facility] 2025-01-22 12:45:00 2025-01-22 12:45:00 Outpatient R MARK WALSH [facility] [id number] [facility] 2025-01-01 13:00:00 2025-01-01 14:23:07 Routine Visit R Mark Walsh Lana [facility] REFERRAL MANAGEMENT LIAISON [facility] & CHILD [facility] ..114 350.1.13.10 4.2.7.2.686 [id number] 107 [id number] [facility] 2025-01-01 13:00:00 2025-01-01 13:00:00 Outpatient R MARK WALSH [facility] [id number] [facility] 2024-12-06 00:00:00 2024-12-06 15:25:18 Telephone GuerreroMark gale Lana [facility] REFERRAL MANAGEMENT LIAISON [facility] & CHILD [facility] ..114 350.1.13.10 4.2.7.2.686 [id number] 107 [id number] [facility] 2024-12-04 13:00:00 2024-12-04 13:54:07 Outpatient R MARK WALSH [facility] [id number] [facility] 2024-12-04 13:00:00 2024-12-04 13:54:07 Routine Visit Mark Walsh [facility] REFERRAL MANAGEMENT LIAISON [facility] & CHILD [facility] 1.84.114 350.1.13.10 4.2.7.2.686 [id number] 107 [id number] [facility] 2024-11-24 11:15:00 2024-11-24 11:43:03 Outpatient DARIO SYED [facility] [id number] [facility] 2024-11-24 11:15:00 2024-11-24 11:43:03 Telemedici ne Visit Nanci Gonzalez Joseph W Narayanan, Swetha [facility] REFERRAL MANAGEMENT LIAISON [facility] & CHILD [facility] 1..114 350.1.13.10 4.2.7.2.686 [id number] 107 [id number] [facility] 2024-11-21 00:00:00 2024-11-21 16:41:07 Abstract Mark Walsh [facility] REFERRAL MANAGEMENT LIAISON [facility] & CHILD [facility] 1..840.114 350.1.13.10 4.2.7.2.686 [id number] 107 [id number] [facility] 2024-11-17 13:00:00 2024-11-17 13:51:46 Outpatient P KRYSTINA JORDAN, KRYSTINA JORDAN, KRYSTINA [facility] [id number] [facility] 2024-11-17 13:00:00 2024-11-17 13:51:46 Medical Research Associate Visit Ul[facility]ound[facility] ..840.114 350.1.13.10 4.2.7.2.686 [id number] [facility] 2024-11-10 12:45:00 2024-11-10 13:05:40 Outpatient R MARK WALSH [facility] [id number] [facility] 2024-11-10 12:45:00 2024-11-10 13:05:40 Medical Research Associate [facility], Yordykendell [facility] ..840.114 350.1.13.10 4.2.7.2.686 [id number] 107 [id number] [facility] 2024-11-06 15:30:00 2024-11-06 16:20:16 Outpatient R MARK WALSH [facility] [id number] [facility] 2024-11-06 15:30:00 2024-11-06 16:20:16 Routine Visit Mark Walsh [facility] 1..840.114 350.1.13.10 4.2.7.2.686 [id number] 107 [id number] [facility] 2024-10-19 00:00:00 2024-10-19 15:59:56 Telephone Mark Walsh [facility] REFERRAL MANAGEMENT [facility] & CHILD [facility] 1.2.840.114 350.1.13.10 4.2.7.2.686 [id number] 107 [id number] [facility] 2024-10-17 00:00:00 2024-10-18 02:04:18 Orders Only Doctor Unassigned, [place] Doctor Unassigned, [place] [facility] 1.2.840.114 350.1.13.10 4.2.7.2.686 [id number] [facility] 2024-10-09 14:15:00 2024-10-09 15:46:39 Outpatient R MARK WALSH [facility] [id number] [facility] 2024-10-09 14:15:00 2024-10-09 15:46:39 Routine Visit Mark Walsh [facility] REFERRAL MANAGEMENT LIAISON [facility] & CHILD [facility] 1.2.840.114 350.1.13.10 4.2.7.2.686 [id number] 107 [id number] [facility] 2024-09-26 00:00:00 2024-09-26 15:31:22 Abstract Mark Walsh [facility] REFERRAL MANAGEMENT LIAISON [facility] & CHILD [facility] 1.2.840.114 350.1.13.10 4.2.7.2.686 [id number] 107 [id number] [facility] 2024-09-25 15:30:00 2024-09-25 16:07:16 Outpatient R PHYLICIA TUCKER SHANNON [facility] [id number] [facility] 2024-09-25 15:30:00 2024-09-25 16:07:16 Medical Research Associate Visit 1, [facility] Room Phylicia Tucker [facility] REFERRAL MANAGEMENT LIAISON [facility] & [facility]ILD [facility] 1.2.840.114 350.1.13.10 4.2.7.2.686 [id number] [facility] 2024-09-11 13:00:00 2024-09-11 13:51:28 Routine Visit Mark Walsh [facility] REFERRAL MANAGEMENT LIAISON [facility] & CHILD [facility] 1.2.840.114 350.1.13.10 4.2.7.2.686 [id number] 107 [id number] [facility] 2024-09-11 13:00:00 2024-09-11 13:00:00 Outpatient R MARK WALSH [facility] [id number] [facility] 2024-08-07 00:00:00 2024-09-09 18:17:21 Patient Secure Jo Antonio [facility] REFERRAL MANAGEMENT LIAISON [facility] & CHILD [facility] 1.2.840.114 350.1.13.10 4.2.7.2.686 [id number] 125 [id number] [facility] 2024-08-15 00:00:00 2024-08-15 10:38:27 Telephone Mark Walsh [facility] REFERRAL MANAGEMENT LIAISON [facility] & CHILD [facility] 1.2840.114 350.1.13.10 4.2.7.2.686 [id number] 107 [id number] [facility] 2024-08-14 13:15:00 2024-08-14 16:30:25 Outpatient R MARK WALSH [facility] [id number] [facility] 2024-08-14 13:45:00 2024-08-14 15:01:20 Initial Visit Mark Walsh [facility] REFERRAL MANAGEMENT LIAISON [facility] & CHILD [facility] 1.2.840.114 350.1.13.10 4.2.7.2.686 [id number] 107 [id number] [facility] 2024-02-03 07:15:00 2024-02-03 07:15:00 Outpatient R WESLEY MONREAL KRISTI [facility] [id number] [facility] 2024-01-27 00:00:00 2024-01-27 17:27:54 Patient Secure Msg Jo Monge [facility] REFERRAL MANAGEMENT LIAISON [facility] & CHILD [facility] 1..840.114 350.1.13.10 4.2.7.2.686 [id number] 125 [id number] [facility] 2024-01-26 13:30:00 2024-01-26 15:31:12 Outpatient R JO MONGE [facility] [id number] [facility] 2024-01-26 13:30:00 2024-01-26 15:31:12 Office Visit Jo Monge [facility] REFERRAL MANAGEMENT [facility]ILD [facility] 1.840.114 350.1.13.10 4.2.7.2.686 [id number] 125 [id number] [facility] 2023-10-01 15:30:00 2023-10-01 15:30:00 Outpatient R [facility] [id number] [facility] 2023-10-01 00:00:00 2023-10-01 00:00:00 Telephone Jo Monge [facility] REFERRAL MANAGEMENT LIAISON [facility] & CHILD [facility] ..840.114 350.1.13.10 4.2.7.2.686 [id number] 125 [id number] [facility] 2023-07-01 13:30:00 2023-07-01 13:45:00 Nurse Visit Pea-Rmchp Nurse Vst, Fp Nrpt Pills Class Jo Monge [facility] REFERRAL MANAGEMENT [facility] 1..840.114 350.1.13.10 4.2.7.2.686 [id number] 125 [id number] [facility] 2023-07-01 13:30:00 2023-07-01 13:30:00 Outpatient R JO MONGE [facility] [id number] [facility] 2023-06-03 09:00:00 2023-06-03 09:00:00 Outpatient R [facility] [id number] [facility] 2023-05-20 00:00:00 2023-05-20 00:00:00 Nurse Triage Leila Calle [facility] 1..114 350.1.13.10 4.2.7.2.686 [id number] [facility] 2023-05-12 00:00:00 2023-05-12 00:00:00 Telephone Jo Monge [facility] REFERRAL MANAGEMENT LIAISON [facility]ILD [facility] 1.840.114 350.1.13.10 4.2.7.2.686 [id number] 125 [id number] [facility] 2023-05-06 09:45:00 2023-05-06 10:46:54 Outpatient R JO MONGE [facility] [id number] [facility] 2023-05-06 09:45:00 2023-05-06 10:46:54 Office Visit Jo Monge [facility] REFERRAL MANAGEMENT LIAISON [facility] & CHILD [facility] 1.840.114 350.1.13.10 4.2.7.2.686 [id number] 125 [id number] [facility] 2023-05-06 00:00:00 2023-05-06 00:00:00 Orders Only Doctor Unassigned, [place] [facility] 1..114 350.1.13.10 4.2.7.2.686 [id number] [facility] 2023-04-08 00:00:00 2023-04-08 00:00:00 Patient Secure Msg Jo Monge [facility] REFERRAL MANAGEMENT [facility] 1..114 350.1.13.10 4.2.7.2.686 [id number] 125 [id number] [facility] 2023-03-31 11:00:00 2023-03-31 12:07:28 Outpatient R JO MONGE [facility] [id number] [facility] 2023-03-31 11:00:00 2023-03-31 12:07:28 Office Visit Jo Monge [facility] REFERRAL MANAGEMENT [facility]ILD [facility] 1..114 350.1.13.10 4.2.7.2.686 [id number] 125 [id number] [facility] 2023-03-31 00:00:00 2023-03-31 00:00:00 Orders Only Doctor Unassigned, [place] [facility] 1..114 350.1.13.10 4.2.7.2.686 [id number] [facility] 2022-12-29 15:30:00 2022-12-29 15:57:40 Outpatient R JO MONGE [facility] [id number] [facility] 2022-12-29 15:30:00 2022-12-29 15:57:40 Nurse Visit Pea-Rmchp Nurse Vst, Fp Nrpt Pills Class Jo Monge [facility] 1..114 350.1.13.10 4.2.7.2.686 [id number] 125 [id number] [facility] 2022-09-28 15:45:00 2022-09-28 16:41:09 Nurse Visit Pea-Rmchp Nurse Vst, Fp Nrpt Pills Class Jo Monge [facility] REFERRAL MANAGEMENT [facility]ISON [facility] CHILD [facility] 1.0.114 350.1.13.10 4.2.7.2.686 [id number] 125 [id number] [facility] 2022-09-28 15:45:00 2022-09-28 15:45:00 Outpatient R JO MONGE [facility] [id number] [facility] 2022-09-25 08:00:00 2022-09-25 08:00:00 Outpatient SINDHU MENDEZ [facility] [id number] [facility] 2022-08-21 00:00:00 2022-08-21 00:00:00 Patient Secure Msg Doctor Unassigned, [place] [facility] REFERRAL MANAGEMENT LIAISON [facility] CH[facility] 1.0.114 350.1.13.10 4.2.7.2.686 [id number] 107 [id number] [facility] 2022-08-20 00:00:00 2022-08-20 00:00:00 Case Management Sindhu Colbert [facility] 1..114 350.1.13.10 4.2.7.2.686 [id number] 107 [id number] [facility] 2022-08-18 08:00:00 2022-08-18 09:41:28 Outpatient SINDHU MENDEZ [facility] [id number] [facility] 2022-08-18 08:00:00 2022-08-18 09:41:28 Office Visit Provider, Geovanny-Rmchp Sindhu Page [facility] REFERRAL MANAGEMENT LIAISON [facility] CHILD [facility] 1..114 350.1.13.10 4.2.7.2.686 [id number] 107 [id number] [facility] 2022-06-26 09:00:00 2022-06-26 09:49:04 Office Visit Mark Walsh [facility] REFERRAL MANAGEMENT LIAISON [facility] .0.114 350.1.13.10 4.2.7.2.686 [id number] 107 [id number] [facility] 2022-06-26 09:00:00 2022-06-26 09:49:04 Outpatient R MARK WALSH [facility] [id number] [facility] 2022-04-08 00:00:00 2022-04-08 00:00:00 Telephone Paula Harry [facility] REFERRAL MANAGEMENT LIAISON [facility] & CHILD [facility] 1..114 350.1.13.10 4.2.7.2.686 [id number] 107 [id number] [facility] 2022-04-07 00:00:00 2022-04-07 00:00:00 Patient Secure Msg Doctor Unassigned, [place] [facility] 1..114 350.1.13.10 4.2.7.2.686 [id number] [facility] 2022-04-06 00:00:00 2022-04-06 00:00:00 Refill Paula Harry [facility] REFERRAL MANAGEMENT LIAISON [facility] & CHILD [facility] 1..114 350.1.13.10 4.2.7.2.686 [id number] 107 [id number] [facility] 2022-04-06 00:00:00 2022-04-06 00:00:00 Telephone Paula Harry [facility] REFERRAL MANAGEMENT LIAISON [facility] & CHILD [facility] 1..114 350.1.13.10 4.2.7.2.686 [id number] 107 [id number] [facility] 2022-04-03 08:30:00 2022-04-03 08:56:06 Outpatient R PAULA HARRY [facility] [id number] [facility] 2022-04-03 08:30:00 2022-04-03 08:56:06 Office Visit Paula Harry [facility] REFERRAL MANAGEMENT LIAISON [facility] & CHILD [facility] 1..114 350.1.13.10 4.2.7.2.686 [id number] 107 [id number] [facility] 2022-04-03 08:30:00 2022-04-03 08:30:00 Outpatient CLAUS ESTRADATANIYAJULIANA [facility] [id number] [facility] 2022-04-03 08:30:00 2022-04-03 08:30:00 Outpatient Luz Marina HARRY PAULA [facility] [id number] [facility] 2022-03-27 00:00:00 2022-03-27 00:00:00 Telephone Stephan Harryrodriguez [facility] REFERRAL MANAGEMENT LIAISON [facility] & CHILD [facility] 1.2.840.114 350.1.13.10 4.2.7.2.686 [id number] 107 [id number] [facility] 2022-03-20 00:00:00 2022-03-20 00:00:00 Telephone Stephan Harryrodriguez [facility] REFERRAL MANAGEMENT LIAISON [facility] & CHILD [facility] 1.2.840.114 350.1.13.10 4.2.7.2.686 [id number] 107 [id number] [facility] 2022-03-18 15:30:00 2022-03-18 16:10:54 Outpatient Luz Marina HARRYPAULA [facility] [id number] [facility] 2022-03-18 15:30:00 2022-03-18 16:10:54 Outpatient PAULA ESTRADA [facility] [id number] [facility] 2022-03-18 15:30:00 2022-03-18 16:10:54 Outpatient PAULA ESTRADA [facility] [id number] [facility] 2022-03-18 15:30:00 2022-03-18 16:10:54 Outpatient PAULA ESTRADA [facility] [id number] [facility] 2022-03-18 15:30:00 2022-03-18 16:10:54 Outpatient PAULA ESTRADA [facility] [id number] [facility] 2022-03-18 15:30:00 2022-03-18 16:10:54 Office Visit Paula Harry [facility] REFERRAL MANAGEMENT [facility] 1.2.840.114 350.1.13.10 4.2.7.2.686 [id number] 107 [id number] [facility] 2020-12-09 00:00:00 2020-12-09 00:00:00 Outpatient [facility] [id number] CCD- [facility]H Results Test Description Test Time Test Comments Results Result Co mments Source [facility] URINALYSIS W SPECIFIC [id number] 18:13:00* Test Item Value Reference Range Interpretation Comme nts POCT U SP GRAV (test code = 3255) . 1.005-1.025 POCT PH U (test code = 3254) . 5-8 POCT U LEUK EST (test code = 3263) . Negative - N egative POCT U NIT (test code = 3262) . Negative - Negati ve POCT U PROT (test code = 3259) 1+ Negative - Negat armand POCT U GLU (test code = 3256) nml Negative - Negati ve POCT U KETONE (test code = 3258) . Negative - Neg ative POCT U UROBILI (test code = 3260) . 0.2-1 POCT U BILI (test code = 3261) . Negative - Negat armand POCT U BLD (test code = 3257) . Negative - Negati ve POCT U COLOR (test code = 3266) . POCT U APPEAR (test code = 3267) [facility] Urinalysis Glucose & [id number] 20:49:00* Test Item Value Reference Range Interpretation Comme nts POCT U PROT (test code = 3259) TRACE Negative - Negat armand POCT U GLU (test code = 3256) NEG Negative - Negati ve Lab Interpretation (test cod e = [id number]) Abnormal [facility] - NON-INVASIVE TEST RESULTS 2024-10-17 13:09:27Ordered by an unspecified provider.[facility] URINALYSIS W SPECIFIC [id number] 20:26:00* Test Item Value Reference Range Interpretation Comme nts POCT U SP GRAV (test code = 3255) . 1.005-1.025 POCT PH U (test code = 3254) . 5-8 POCT U LEUK EST (test code = 3263) . Negative - N egative POCT U NIT (test code = 3262) . Negative - Negati ve POCT U PROT (test code = 3259) trace Negative - Negat armand POCT U GLU (test code = 3256) normal Negative - Negati ve POCT U KETONE (test code = 3258) . Negative - Neg ative POCT U UROBILI (test code = 3260) . 0.2-1 POCT U BILI (test code = 3261) . Negative - Negat armand POCT U BLD (test code = 3257) . Negative - Negati ve POCT U COLOR (test code = 3266) . POCT U APPEAR (test code = 3267) . [facility] URINALYSIS W SPECIFIC [id number] 19:22:00* Test Item Value Reference Range Interpretation Comme nts POCT U SP GRAV (test code = 3255) . 1.005-1.025 POCT PH U (test code = 3254) . 5-8 POCT U LEUK EST (test code = 3263) . Negative - N egative POCT U NIT (test code = 3262) . Negative - Negati ve POCT U PROT (test code = 3259) trace Negative - Negat armand POCT U GLU (test code = 3256) neg Negative - Negati ve POCT U KETONE (test code = 3258) . Negative - Neg ative POCT U UROBILI (test code = 3260) . 0.2-1 POCT U BILI (test code = 3261) . Negative - Negat armand POCT U BLD (test code = 3257) . Negative - Negati ve POCT U COLOR (test code = 3266) . POCT U APPEAR (test code = 3267) . [facility] [id number] 19:49:00* Test Item Value Reference Range Interpretation Comme nts POCT PREG (test code = 1605) Positive On board controls acceptable with C Line (test code = 3574) Yes POCT PREG LOT # (test code = 3575) POCT PREG TEST DATE ( test code = 3576) [facility] Urinalysis w/o Specific [id number] 19:49:00* Test Item Value Reference Range Interpretation Comme nts POCT PH U (test code = 3254) 5 mg/dl 5-8 POCT U LEUK EST (test code = 3263) neg Negative - Negative POCT U NIT (test code = 3262) neg Negative - Negati ve POCT U PROT (test code = 3259) trace Negative - Negat armand POCT U GLU (test code = 3256) neg Negative - Negati ve POCT U KETONE (test code = 3258) neg Negative - Neg ative POCT U BLD (test code = 3257) trace Negative - Negati ve [facility] [id number] 19:13:00* Test Item Value Reference Range Interpretation Comme nts POCT PREG (test code = 1605) Negative On board controls acceptable with C Line (test code = 3574) Yes POCT PREG LOT # (test code = 3575) POCT PREG TEST DATE ( test code = 3576) [facility] [id number] 19:13:00* Test Item Value Reference Range Interpretation Comme nts POCT PREG (test code = 1605) Negative On board controls acceptable with C Line (test code = 3574) Yes POCT PREG LOT # (test code = 3575) POCT PREG TEST DATE ( test code = 3576) [facility] [id number] 19:13:00* Test Item Value Reference Range Interpretation Comme nts POCT PREG (test code = 1605) Negative On board controls acceptable with C Line (test code = 3574) Yes POCT PREG LOT # (test code = 3575) POCT PREG TEST DATE ( test code = 3576) [facility] [id number] 19:13:00* Test Item Value Reference Range Interpretation Comme nts POCT PREG (test code = 1605) Negative On board controls acceptable with C Line (test code = 3574) Yes POCT PREG LOT # (test code = 3575) POCT PREG TEST DATE ( test code = 3576) [facility] [id number] 14:49:00* Test Item Value Reference Range Interpretation Comme nts POCT PREG (test code = 1605) Negative On board controls acceptable with C Line (test code = 3574) Yes POCT PREG LOT # (test code = 3575) POCT PREG TEST DATE ( test code = 3576) [facility] [id number] 14:49:00* Test Item Value Reference Range Interpretation Comme nts POCT PREG (test code = 1605) Negative On board controls acceptable with C Line (test code = 3574) Yes POCT PREG LOT # (test code = 3575) POCT PREG TEST DATE ( test code = 3576) [facility] [id number] 22:11:00* Test Item Value Reference Range Interpretation Comme nts POCT PREG (test code = 1605) Negative On board controls acceptable with C Line (test code = 3574) Yes POCT PREG LOT # (test code = 3575) POCT PREG TEST DATE ( test code = 3576) [facility] WITH [id number] 09:20:25* Test Item Value Reference Range Interpretation Comme nts WBC (test code = 6690-2) See_Comment L [Automated messa ge] The system which generated this result transmitted reference range: 4.30 - 11.10 10*3/?L. The reference range was not used to interpret this result as normal/abnormal. RBC (test code = 789-8) See_Comment [Automated messa ge] The system which generated this result transmitted reference range: 3.93 - 5.25 10*6/?L. The reference range was not used to interpret this result as normal/abnormal. HGB (test code = 718-7) 12.8 g/dL 11.6-15.0 HCT (test code = 4544-3) 38.9 % 35.7-45.2 MCV (test code = 787-2) 79.7 fL 80.6-95.5 L MCH (test code = 785-6) 26.2 pg 25.9-32.8 MCHC (test code = 786-4) 32.9 g/dL 31.6-35.1 RDW-SD (test code = 40294-3) 40.9 fL 39.0-49.9 RDW-CV (test code = 788-0) 14.1 % 12.0-15.5 PLT (test code = 777-3) See_Comment [Automated messa ge] The system which generated this result transmitted reference range: 166 - 358 10*3/?L. The reference range was not used to interpret this result as normal/abnormal. MPV (test code = 69645-2) 9.1 fL 9.5-12.9 L NRBC/100 WBC (test code = 4991595818) See_Comment [Automated [employer] ssage] The system which generated this result transmitted reference range: 0.0 - 10.0 /100 WBCs. The reference range was not used to interpret this result as normal/abnormal. NRBC x10^3 (test code = 4226886042) See_Comment [Automated messa ge] The system which generated this result transmitted reference range: 10*3/?L. The reference range was not used to interpret this result as normal/abnormal. GRAN MAT (NEUT) % (test code = 770-8) 39.6 % IMM GRAN % (test code = 7600747023) 0.30 % LYMPH % (test code = 736-9) 45.2 % MONO % (test code = 5905-5) 9.6 % EOS % (test code = 713-8) 3.8 % BASO % (test code = 706-2) 1.5 % GRAN MAT x10^3(ANC) (test code = 6689668295) 1.36 10*3/uL 1.88-7.09 L IMM GRAN x10^3 (test code = 9391163629) 0.00-0.06 LYMPH x10^3 (test code = 731-0) 1.55 10*3/uL 1.32-3.29 MONO x10^3 (test code = 742-7) 0.33 10*3/uL 0.33-0.92 EOS x10^3 (test code = 711-2) 0.13 10*3/uL 0.03-0.39 BASO x10^3 (test code = 704-7) 0.05 10*3/uL 0.01-0.07 Lab Interpretation (test code = 55893-0) Abnormal [facility] WITH [id number] 09:20:25* Test Item Value Reference Range Interpretation Comme nts WBC (test code = 6690-2) See_Comment L [Automated messa ge] The system which generated this result transmitted reference range: 4.30 - 11.10 10*3/?L. The reference range was not used to interpret this result as normal/abnormal. RBC (test code = 789-8) See_Comment [Automated messa ge] The system which generated this result transmitted reference range: 3.93 - 5.25 10*6/?L. The reference range was not used to interpret this result as normal/abnormal. HGB (test code = 718-7) 12.8 g/dL 11.6-15.0 HCT (test code = 4544-3) 38.9 % 35.7-45.2 MCV (test code = 787-2) 79.7 fL 80.6-95.5 L MCH (test code = 785-6) 26.2 pg 25.9-32.8 MCHC (test code = 786-4) 32.9 g/dL 31.6-35.1 RDW-SD (test code = 64811-3) 40.9 fL 39.0-49.9 RDW-CV (test code = 788-0) 14.1 % 12.0-15.5 PLT (test code = 777-3) See_Comment [Automated messa ge] The system which generated this result transmitted reference range: 166 - 358 10*3/?L. The reference range was not used to interpret this result as normal/abnormal. MPV (test code = 76089-3) 9.1 fL 9.5-12.9 L NRBC/100 WBC (test code = 2309491463) See_Comment [Automated me ssage] The system which generated this result transmitted reference range: 0.0 - 10.0 /100 WBCs. The reference range was not used to interpret this result as normal/abnormal. NRBC x10^3 (test code = 4034811608) See_Comment [Automated messa ge] The system which generated this result transmitted reference range: 10*3/?L. The reference range was not used to interpret this result as normal/abnormal. GRAN MAT (NEUT) % (test code = 770-8) 39.6 % IMM GRAN % (test code = 6390399348) 0.30 % LYMPH % (test code = 736-9) 45.2 % MONO % (test code = 5905-5) 9.6 % EOS % (test code = 713-8) 3.8 % BASO % (test code = 706-2) 1.5 % GRAN MAT x10^3(ANC) (test code = 0476011698) 1.36 10*3/uL 1.88-7.09 L IMM GRAN x10^3 (test code = 6201487811) 0.00-0.06 LYMPH x10^3 (test code = 731-0) 1.55 10*3/uL 1.32-3.29 MONO x10^3 (test code = 742-7) 0.33 10*3/uL 0.33-0.92 EOS x10^3 (test code = 711-2) 0.13 10*3/uL 0.03-0.39 BASO x10^3 (test code = 704-7) 0.05 10*3/uL 0.01-0.07 Lab Interpretation (test code = 58685-3) Abnormal [facility] Notes Date/Time Note Provider Source 2025-01-30 14:59:27 Nurse spoke to patient about lab results. Pt verbalized understanding and has no further questions. Please notify the patient that yeast was identified . Meds have been sent to her pharmacy on file, please advise the patient to complete the meds as prescribed, and practice good perineal hygiene. Mark Walsh FAITH 01/30/2025 2:03 PM José Emmanuel LVN [facility] 2025-01-30 14:57:26 Augustin Santamaria is a 29 year old female returning missed call Eri Navarro [facility] 2025-01-30 14:40:22 Attempt #1 no answer, LVM to call back clinic for lab results. Please notify the patient that yeast was identified . Meds have been sent to her pharmacy on file, please advise the patient to complete the meds as prescribed, and practice good perineal hygiene. SHANE Meyers 01/30/2025 2:03 PM [facility] 2025-01-30 14:02:04 Please notify the patient that yeast was identified . Meds have been sent to her pharmacy on file, please advise the patient to complete the meds as prescribed, and practice good perineal hygiene. SHANE Meyers 01/30/2025 2:03 PM [facility] 2025-01-24 09:00:00 Addended by: MARK POWER on: 01/24/2025 02:10 PM Modules accepted: Orders [facility] 2024-12-06 15:24:52 Patient informed of results and new orders, verbalized understanding. Shyanne Talbert LVN [facility] 2024-12-06 14:50:43 Please notify the patient that yeast was identified on her pap. Meds have been sent to her pharmacy on file, please advise the patient to complete the meds as prescribed, and practice good perineal hygiene. sinusitis SHANE Meyers 12/06/2024 2:50 PM [facility] 2024-10-19 15:36:38 Pt called, discussed results and poc. Pt verbalized understanding. Umm Vuong RN 10/19/24 3:37 PM ONING SPRAYER Umm Vuong RN [facility] 2024-10-19 15:34:53 Patient returned missed call from nurse for results. Please contact pt at [phone] (home) ONING SPRAYER Kandace Jordan [facility] 2024-10-19 15:29:17 Called pt, no answer. Left vm. Umm Vuong RN 10/19/24 3:29 PM [facility] 2024-10-19 13:54:00 Pt positive for sickle cell trait, please notify the patient genetic counseling orders have been placed . As mentioned in prior note, please have pt notify FOB to be screened, he can be seen at the [facility] or can receive screening here in clinic. SHANE Meyers 10/19/2024 1:59 PM [facility] 2024-08-15 10:37:23 Call pt and notified of new results. Informed of need for FOB to be tested. Informed on taking PNV and folic acid in diet. Pt verbalized understanding. Asha Blackwell LVN 08/15/2024 10:38 AM [facility] 2024-08-15 09:39:27 Please advise patient she is positive for sickle cell screening. I've added an electrophoresis to her lab so she does not have to come in for lab draw. If she knows the FOB, please have her advise him that he must either be tested by us or he can be seen at the local sick[facility] cell [facility] for screening. Please educate the patient on adequate folic acid in her diet and/or consistent use of pnv. Genetic transmission- one in four chance child will have disease if both parents are carriers, two in four chance child will be a carrier and one in four chance the child will be normal. SHANE Meyers 08/15/2024 9:48 AM [facility] 2023-10-07 10:43:49 Attempted to call #3. Left message with call back number. NCE Cherry LVN [facility] 2023-10-06 12:20:48 Attempted to call #2. Left message with call back number. [facility] 2023-10-01 16:17:13 Attempted to call #1. Left message with call back number. [facility] 2023-10-01 14:37:36 DenysKyung Santamaria is a 28 year old female Pt calling requesting a call back to r/s depo appt. Pt stated if she can do 10/08 Pt also wanted to add if she can do an std testing as well,she stated she has no symptoms just wanting the test. Please advise [facility]
[2025-03-26] MEDS ORDERED: NA CHLORIDE 0.9% 1,000 ML ONE (10:14)
[2025-03-26 10:27] LABS: Absolute Lymphocytes (CBC) 1.7 K/uL (0.7-4.9); Hematocrit 31.4 % (36.0-45.0); Hemoglobin 10.7 g/dL (12.0-15.0); MCH 25.5 pg (27.0-35.0); MCHC 34.0 g/dL (32.0-36.0); MCV 75.0 fL (80-100); MPV 6.5 fL (7.6-11.3); Nucleated RBC Absolute Count 0.0 (0-0); Nucleated Red Blood Cells % 0.1 % (0-0); RBC Red Blood Cell Count 4.19 M/uL (3.86-4.86); White Blood Count 5.00 thou/uL (4.3-10.9)
--- NOTE | 2025-03-26 10:32 | ER ---
Nurse's Notes [facility] Name: Robby Barry Age: 29 yrs Sex: Female : 1995 Arrival Date: 03/26/2025 Time: 10:01 Bed 1 Private MD: Diagnosis: 38 weeks gestation of -IN EARLY LABOR Presentation: 03/26 10:19 Chief complaint: Patient states: SHE BEGAN HAVING PELVIC PRESSURE AND LOW BACK PAIN AT dd2 8 AM. REPORTS CONTRACTIONS EVERY 2 MINS. PT REPORTS 38 WEEKS . DENIES FLUID LEAKAGE. Coronavirus screen: At this time, the client does not indicate any symptoms associated with coronavirus-19. Ebola Screen: No symptoms or risks identified at this time. Initial Sepsis Screen: Does the patient meet any 2 criteria? No. Patient's initial sepsis screen is negative. Does the patient have a suspected source of infection? No. Patient's initial sepsis screen is negative. Risk Assessment: Do you want to hurt yourself or someone else? Patient reports no desire to harm self or others. Onset of symptoms was March 26, 2025 at 08:00. 10:19 Method Of Arrival: Ambulatory dd2 10:19 Acuity: KYA 3 dd2 Triage Assessment: 10:21 General: Appears in no apparent distress. uncomfortable, Behavior is calm, cooperative, dd2 appropriate for age. Pain: Complains of pain in low back area, suprapubic area and right lower quadrant. CIS COORDINATOR: 10:21 Verified dd2 10:25 1, Full Term 0, Premature 0, 0, Living 0, unknown jermeiah Historical: - Allergies: 10:21 PENICILLINS; dd2 - PMHx: 10:21 None; dd2 - PSHx: 10:21 None; dd2 - Immunization history:: Adult Immunizations unknown. - Infectious Disease History:: Denies. - Social history:: Smoking status: Patient denies any tobacco usage or history of. Screenin:40 [facility] ED Fall Risk Assessment (Adult) History of falling in the last 3 months, db including since admission No falls in past 3 months (0 pts) Confusion or Disorientation No (0 pts) Intoxicated or Sedated No (0 pts) Impaired Gait No (0 pts) Mobility Assist Device Used No (0 pt) Altered Elimination No (0 pt) Score/Fall Risk Level 0 - 2 = Low Risk Oriented to surroundings, Maintained a safe environment. Abuse screen: Denies threats or abuse. Denies injuries from another. Nutritional screening: No deficits noted. Tuberculosis screening: No symptoms or risk factors identified. Assessment: 10:35 Reassessment: Patient appears in no apparent distress at this time. Patient and/or db family updated on plan of care and expected duration. Pain level reassessed. Patient is alert, oriented x 3, equal unlabored respirations, skin warm/dry/pink. 10:40 Reassessment: REPORT CALLED TO ROBERT HANDY AT [facility] L\T\D TRIAGE. db 10:48 Reassessment: DRIVER TRAINER IS AT PATIENT BEDSIDE. db 10:49 Reassessment: Patient appears in no apparent distress at this time. Patient and/or db family updated on plan of care and expected duration. Pain level reassessed. General: Appears in no apparent distress. comfortable, Behavior is calm, cooperative. Pain: Denies pain. Neuro: Level of Consciousness is awake, alert, obeys commands, Oriented to person, place, time, situation. Respiratory: Airway is patent Respiratory effort is even, unlabored, Respiratory pattern is regular, symmetrical. GI: Abdomen is round. : Reports VAGINAL PRESSURE. :. 10:50 Reassessment: Patient appears in no apparent distress at this time. Patient and/or db family updated on plan of care and expected duration. Pain level reassessed. Patient is alert, oriented x 3, equal unlabored respirations, skin warm/dry/pink. Vital Signs: 10:19 BP 139 / 85; Pulse 100; Resp 18; Temp 98.2; Pulse Ox 100% ; Pain 5/10; dd2 10:40 BP 124 / 74; Pulse 100; Resp 16; Pulse Ox 100% on R/A; db 10:19 Pain Scale: Adult dd2 Vitals: 10:34 Heart Tones 140. db ED Course: 10:04 Patient arrived in ED. ll1 10:05 Arm band placed on Patient placed in an exam room, on a stretcher. ll1 10:07 Sujit Fitzgerald MD is Attending Physician. jeremiah 10:10 Initial lab(s) drawn, sent to lab. Inserted saline lock: 20 gauge in right antecubital db area, using aseptic technique. Blood collected. Flushed with 10 mL NS. 10:12 Josephine Morales, RN is Primary Nurse. db 10:21 Triage completed. dd2 10:24 initiated transfer to [facility], pt accepted in transfer to [facility] L\T\D bd triage by dr Caren Alvarez admin approval given by Kisha Clark rn. 10:50 Patient has correct armband on for positive identification. Bed in low position. Call db light in reach. Side rails up X 1. Provided Education on: TRANSFER. Pulse ox on. NIBP on. Warm blanket given. Pillow given. 10:50 No provider procedures requiring assistance completed. Patient transferred, IV remains db in place. 11:00 US OB Limited In Process Unspecified. EDMS Administered Medications: 10:25 Drug: NS 0.9% IV 1000 ml IV at 1000 ml once; to be given as a bolus over 60 minutes db Route: IV; Rate: 1000 ml; Site: right antecubital; 10:50 Follow up: Response: No adverse reaction; IV Status: Infusion continued upon transfer db Medication: 10:49 VIS not applicable for this client. db Outcome: 10:31 ER care complete, transfer ordered by MD. daniels 10:50 Condition: stable db 10:50 Discharge instructions given to patient, family, Instructed on the need for transfer, 10:55 Transferred by ground EMS to [facility], Transfer form db completed. Note: EMS ARRIVAL FOR PT TRANSFER 11:00 Patient left the ED. db Signatures: Dispatcher [employer] EDMS Yaneth Juarez Corey, MD MD cha Lewis, Lynsay, RN RN ll1 Josephine Morales RN RN db MERLE WELSH RN RN dd2 Corrections: (The following items were deleted from the chart) 11:28 11:26 Patient left the ED. db db 11:28 10:50 Transferred by ground EMS to [facility], Transfer form db completed. Note: EMS ARRIVAL FOR PT TRANSFER db
--- NOTE | 2025-03-26 10:32 | EDPHYS ---
Physician Documentation [facility] Name: Robby Barry Age: 29 yrs Sex: Female : 1995 Arrival Date: 03/26/2025 Time: 10:01 Bed 1 Private MD: ED Physician Sujit Fitzgerald HPI: 03/26 10:25 This 29 yrs old Black Female presents to ER via Ambulatory with complaints of Pelvic jeremiah Pain. 10:25 The patient presents to the emergency department with possible uterine contractions, jeremiah today, abdominal pain, of the right lower quadrant and left lower quadrant. The estimated gestational age is 38 weeks. course: care: at a clinic. Previous pregnancies: the patient has never been . Associated signs and symptoms: The patient has no apparent associated signs or symptoms. C PROGRAMMER: 10:21 Verified dd2 10:25 1, Full Term 0, Premature 0, 0, Living 0, unknown jeremiah Historical: - Allergies: 10:21 PENICILLINS; dd2 - PMHx: 10:21 None; dd2 - PSHx: 10:21 None; dd2 - Immunization history:: Adult Immunizations unknown. - Infectious Disease History:: Denies. - Social history:: Smoking status: Patient denies any tobacco usage or history of. ROS: 10:26 Constitutional: Negative for fever, chills, and weight loss, Eyes: Negative for injury, jeremiah pain, redness, and discharge, ENT: Negative for injury, pain, and discharge, Neck: Negative for injury, pain, and swelling, Cardiovascular: Negative for chest pain, palpitations, and edema, Respiratory: Negative for shortness of breath, cough, wheezing, and pleuritic chest pain, Back: Negative for injury and pain, : Negative for injury, bleeding, discharge, and swelling, MS/Extremity: Negative for injury and deformity, Skin: Negative for injury, rash, and discoloration, Neuro: Negative for headache, weakness, numbness, tingling, and seizure, Psych: Negative for depression, anxiety, suicide ideation, homicidal ideation, and hallucinations, Allergy/Immunology: Negative for hives, rash, and allergies, Endocrine: Negative for neck swelling, polydipsia, polyuria, polyphagia, and marked weight changes, Hematologic/Lymphatic: Negative for swollen nodes, abnormal bleeding, and unusual bruising, 10:26 Abdomen/GI: Positive for abdominal pain, abdominal cramps, Exam: 10:26 Constitutional: This is a well developed, well nourished patient who is awake, alert, jeremiah and in no acute distress. Head/Face: Normocephalic, atraumatic. Eyes: Pupils equal round and reactive to light, extra-ocular motions intact. Lids and lashes normal. Conjunctiva and sclera are non-icteric and not injected. Cornea within normal limits. Periorbital areas with no swelling, redness, or edema. ENT: Nares patent. No nasal discharge, no septal abnormalities noted. Tympanic membranes are normal and external auditory canals are clear. Oropharynx with no redness, swelling, or masses, exudates, or evidence of obstruction, uvula midline. Mucous membranes moist. Neck: Trachea midline, no thyromegaly or masses palpated, and no cervical lymphadenopathy. Supple, full range of motion without nuchal rigidity, or vertebral point tenderness. No Meningismus. Chest/axilla: Normal chest wall appearance and motion. Nontender with no deformity. No lesions are appreciated. Cardiovascular: Regular rate and rhythm with a normal S1 and S2. No gallops, murmurs, or rubs. Normal PMI, no JVD. No pulse deficits. Respiratory: Lungs have equal breath sounds bilaterally, clear to auscultation and percussion. No rales, rhonchi or wheezes noted. No increased work of breathing, no retractions or nasal flaring. Back: No spinal tenderness. No costovertebral tenderness. Full range of motion. Skin: Warm, dry with normal turgor. Normal color with no rashes, no lesions, and no evidence of cellulitis. MS/ Extremity: Pulses equal, no cyanosis. Neurovascular intact. Full, normal range of motion., bilateral aka Neuro: Awake and alert, GCS 15, oriented to person, place, time, and situation. Cranial nerves II-XII grossly intact. Motor strength 5/5 in all extremities. Sensory grossly intact. Cerebellar exam normal. Normal gait. Psych: Awake, alert, with orientation to person, place and time. Behavior, mood, and affect are within normal limits. 10:26 Abdomen/GI: Inspection: gravid appearance, is noted, Bowel sounds: normal, Palpation: abdomen is soft and non-tender, Liver: no appreciated palpable abnormalities, Hernia: not appreciated, 10:26 : Pelvic Exam: External exam: is normal, no appreciated Bartholin's cyst, no erythema, not excoriated, Speculum exam: no bleeding is noted, no cervicitis, os that is closed, Gravid exam: Fundal height: consistent with gestational age, Cervical size: the cervix is not dilated, Effacement: the is no cervical effacement, Station: - 3, Presentation: the presentation is consistent with cephalic-vertex, lie: transverse, Bladder: is normal, Sexual behavior: the patient is sexually active, and reports a single partner, Vital Signs: 10:19 BP 139 / 85; Pulse 100; Resp 18; Temp 98.2; Pulse Ox 100% ; Pain 5/10; dd2 10:40 BP 124 / 74; Pulse 100; Resp 16; Pulse Ox 100% on R/A; db 10:19 Pain Scale: Adult dd2 MDM: 10:07 Medical Screening Exam initiated jeremiah 10:28 Differential diagnosis: nonspecific abdominal pain, urinary tract infection, ACTIVE jeremiah LABOR. Data reviewed: vital signs, nurses notes, lab test result(s), radiologic studies, ultrasound. Consideration of Admission/Observation Escalation of care including admission/observation considered. I considered the following discharge prescriptions or medication management in the emergency department Medications were administered in the Emergency Department. See MAR. Independent interpretation of the following test(s) in the Emergency Department Radiology Department Ultrasound: My interpretation is ABD USG, PELVIC US. Care significantly affected by the following chronic conditions: G1, P0, A0. 03/26 10:08 Order name: Abo/rh Typing [facility] 03/26 10:08 Order name: Basic Metabolic Panel; Complete Time: 11:03 [facility] 03/26 10:08 Order name: CBC with Diff; Complete Time: 11:03 [facility] 03/26 10:08 Order name: US OB Limited [facility] 03/26 10:08 Order name: IV Saline Lock; Complete Time: 10:51 [facility] 03/26 10:08 Order name: Labs collected and sent; Complete Time: 10:51 [facility] 03/26 10:08 Order name: NPO; Complete Time: 10:51 [facility] Administered Medications: 10:25 Drug: NS 0.9% IV 1000 ml IV at 1000 ml once; to be given as a bolus over 60 minutes db Route: IV; Rate: 1000 ml; Site: right antecubital; 10:50 Follow up: Response: No adverse reaction; IV Status: Infusion continued upon transfer db Disposition Summary: 03/26/25 10:31 Transfer Ordered Notes: Transfer Location: [facility] Reason: Higher level of care jeremiah Condition: Fair jeremiah Problem: new jeremiah Symptoms: have improved jeremiah Accepting Physician: TO [facility](03/26/25 11:26) db Diagnosis - 38 weeks gestation of - IN EARLY LABOR jeremiah Forms: - Medication Reconciliation Form jeremiah - SBAR form jeremiah Signatures: Dispatcher [employer] EDSujit Post MD MD cha Benton, Danielle, RN RN MERLE Marcelino RN RN dd2 Corrections: (The following items were deleted from the chart) 10:31 10:31 TO [facility] 38 WEEK jeremiah jeremiah 11:26 10:31 TO [facility] jeremiah db
[2025-03-26 10:43] LABS: Anion Gap 8.7 mEq/L (5.0-15.0); BUN Blood Urea Nitrogen 5.0 mg/dL (7-18); Glucose Level 91.0 mg/dL (74-106); Potassium 3.7 mEq/L (3.5-5.1)
--- NOTE | 2025-03-26 11:21 | RAD REPORT ---
EXAM:OB Limited CLINICAL HISTORY: with abdominal pain TECHNIQUE: Limited OB ultrasound performed FINDINGS: Single live intrauterine in cephalic presentation. Cervix 4 cm Cardiac activity at 1 43 bpm. The placenta and contains calcifications and is fundal. No subchorionic/retroplacental Amniotic fluid index 5.5 cm. Normal values 6.4 to 26 cm Right and left adnexa appear erosive normal. IMPRESSION: Single live intrauterine in cephalic presentation The estimated gestational age on this limited ultrasound 37 weeks 2 days FRANKO 04/14/[birth year]25 +/- 3 weeks 2 days Mild oligohydramnios
[2025-03-26 11:31] VITALS: TEMP 98.2; O2SAT 100
[2025-03-26 11:32] VITALS: BP 124/74
== END 2025-03-26 11:26 | disposition short-term general hospital (02) ==
LOC: ER 10:01
DX: O60.03 Preterm labor without delivery, third trimester (principal); Z3A.38 38 weeks gestation of pregnancy
CPT/HCPCS: 85025; 80048; 36415; 86900; 86901; 76815; 99285; J7030